=== PATIENT | female | born 1935 | race Caucasian/White ===

== ENCOUNTER → 2016-12-16 | Outpatient (CLI) | payer MEDICARE, OTHER ==
[~2016-12-16] MED LIST: ANTIVERT/2525 M1 PO; ATARAX25 MG PO; ATENOLOL25 MG PO; B-121000 MCG PO; BACTRIM DS 8001 TA1 PO; BENADRYL ALLERG25 M1 PO; COLACE100 MG PO; COUMADIN2.5 M1 PO; D-31000 IU PO; FEOSOL65 MG PO; FOLIC ACID1 MG PO; HALFPRIN162 MG PO; HOMATROPAIRE OS; K-DUR20 MEQ PO; LASIX20 MG PO; LISINOPRIL5 MG PO; MAG-OX 400400 MG PO; MIRALAX POWDER17 G1 PO; NOVOLOG FLEX100 U/ML SC; OXYCODONE5 MG PO; PERCOCET 325 MG1 TA2 PO; PERCOCET 325 MG1 TA5 PO; PERCOCET 325 MG1 TA6 PO; PLAVIX75 MG PO; PRAVACHOL40 MG PO; PRED FORTE 10 M10 ML OS; PROTONIX40 MG PO; Percocet 325 MG1 TAB PO; REGLAN PO; RESTORIL15 MG PO; STEROID EYE DROPS; TOLMETIN SODIU400 MG PO; TYLENOL325 M1 PO; ULTRAM50 MG PO; XOPENEX0.63 MG INH; ZOFRAN4 MG PO; ZOFRAN8 M1 PO
== END | disposition home or self-care (01) ==
LOC: RAD 11:28
DX: M19.071 Primary osteoarthritis, right ankle and foot (principal); M17.11 Unilateral primary osteoarthritis, right knee; M77.51 Other enthesopathy of right foot and ankle

== ENCOUNTER → 2017-01-05 | Outpatient (CLI) | payer MEDICARE, OTHER | END | disposition home or self-care (01) | LOC: ORTHO 08:23 | DX: M25.471 Effusion, right ankle (principal); W19.XXXA Unspecified fall, initial encounter ==

== ENCOUNTER → 2017-02-07 | Outpatient (CLI) | payer MEDICARE, OTHER | END | disposition home or self-care (01) | LOC: RAD 14:03 | DX: M47.896 Other spondylosis, lumbar region (principal); M46.04 Spinal enthesopathy, thoracic region; M85.88 Other specified disorders of bone density and structure, other site; I70.0 Atherosclerosis of aorta ==

== ENCOUNTER → 2017-02-23 | Outpatient (CLI) | payer MEDICARE, OTHER | LOC: MRI 14:43 | DX: M47.896 Other spondylosis, lumbar region (principal); M79.1 Myalgia; W19.XXXA Unspecified fall, initial encounter; Y93.89 Activity, other specified; Y92.89 Other specified places as the place of occurrence of the external cause; Y99.8 Other external cause status ==

== ENCOUNTER 2017-03-07 19:24 | Inpatient (IN) | payer MEDICARE, OTHER ==
[~2017-03-07] VITALS: Ht 157.5 cm; Wt 75.1 kg
--- NOTE | ~2017-03-07 | WRIGHTHP ---
[place], [place] PATIENT HISTORY AND PHYSICAL EXAM NAME: TARA TORRE [facility] #: [id number] UNIT #: [id number] ROOM: 508 DOCTOR: ALDO HERNANDES MD BIRTHDATE: [birth year] DOS: 03/08/2017 HISTORY OF PRESENT ILLNESS: The patient is an 81-year-old female with past medical history of: 1. Mixed hyperlipidemia. 2. History of left hip fracture status post intramedullary nail fixation. 3. Adult failure to thrive. 4. Chronic constipation. 5. History of gastroesophageal reflux disease and esophagitis. The patient presented to the Emergency Department with dizziness and being unable to walk properly. After initial evaluation and CT scan of the head, the patient was recommended for admission and further management because she lives by herself. The patient has a long-term history of adult failure to thrive, but she was not complaining of any chest pains. No fainting spells, but she nearly passed out prior to coming to the hospital. SYSTEMS REVIEW: CARDIOVASCULAR SYSTEM: No chest pain or palpitations. GASTROINTESTINAL: No nausea, vomiting, diarrhea or constipation. LUNGS: No shortness of breath or wheezing. SOCIAL HISTORY: Denies smoking cigarettes, alcohol and drug abuse. Lives by herself. FAMILY HISTORY: Noncontributory. HOME MEDICATIONS: Protonix, pravastatin, MiraLax and metoclopramide. ALLERGIES: The patient has no known allergies to MORPHINE, GENERAL ANESTHESIA AND SOME TAPE. PHYSICAL EXAMINATION: GENERAL: The patient is alert and oriented x 3, generally weak. HEENT AND NECK: Extraocular movements are intact. Sclerae are anicteric. Oral mucosa is moist and clean. No obvious facial weakness. Neck is supple without any lymphadenopathy. No thyromegaly. No JVD. No carotid arterial bruits. LUNGS: Clear to auscultation. No wheezing. No rhonchi. CARDIOVASCULAR SYSTEM: Heart rate is regular in rate and rhythm. S1 and S2 normally audible. No significant murmur or any other abnormal cardiac sounds. ABDOMEN: Soft, nontender. No obvious organomegaly. Bowel sounds are present. No obvious herniation. EXTREMITIES: Without significant cyanosis or edema. Warm to touch. CENTRAL NERVOUS SYSTEM: Alert and oriented x 3. Cranial nerves II-XII are intact. Speech is normal. The patient is able to move all extremities. Normal muscle strength. Deep tendon reflexes are equal on both sides. Plantars were downgoing. LABORATORY DATA: Serum electrolytes were normal. Blood sugar of 114. CT of the head without any acute process. Normal CBC. [place], [place] PATIENT HISTORY AND PHYSICAL EXAM NAME: TARA TORRE UNIT #: [id number] ROOM: 508 DOCTOR: ALDO HERNANDES MD BIRTHDATE: [birth year] IMPRESSION: 1. The patient presenting with dizziness, near syncopal episode and difficulty with ambulation. The patient lives by herself, so she was admitted to [facility] and physical therapy has been consulted. I am also consulting manager social services and tried to place her in a penitentiary facility for rehab. The patient is at high risk for falling at home and being able to survive by herself at her age of [age] years old and feeling dizzy and being unable to ambulate normally. 2. Mixed hyperlipidemia. I will continue treatment with Pravachol. 3. Gastroesophageal reflux disease and esophagitis. The patient already on Protonix and Carafate, which have been continued. 4. Chronic constipation, treated and controlled with MiraLax, which has been continued. ALDO HERNANDES MD CM:HISPHYS:PATIENT HISTORY AND PHYSICAL EXAMINATION [phone] ALDO HERNANDES MD 03/08/171954 interface
--- NOTE | ~2017-03-07 | DS ---
[place], [place] DISCHARGE SUMMARY NAME: TARA TORRE UNIT #: [id number] ROOM: 508 DOCTOR: ALDO HERNANDES MD BIRTHDATE: [birth year] DOS: 03/09/2017 DISCHARGE DIAGNOSES: 1. Benign positional vertigo, improved with treatment. 2. Mixed hyperlipidemia. 3. Left hip fracture status post intramedullary nail fixation in the past. 4. Adult failure to thrive. 5. Chronic constipation. 6. History of gastroesophageal reflux disease and esophagitis. 7. Chronic constipation. 8. Mixed hyperlipidemia. HOSPITAL COURSE: 1. The patient presented to the Emergency Department with dizziness and near syncopal episode with difficulty with ambulation. The patient lives by herself and is generally weak and ambulates with the help of a walker. The patient's daughter lives next to her. The patient was having difficulty with ambulation, so she was admitted and she worked with physical therapy and I treated her with Antivert. The patient's dizziness improved and she is ambulating better. I tried to get her to prison facility for rehabilitation, but the patient has refused and she wants to go home. The patient appears to have achieved maximum benefit from this admission and will be discharged to home with her daughter today. 2. Mixed hyperlipidemia, treated with Pravachol. 3. Gastroesophageal reflux disease and esophagitis, asymptomatic, with Protonix and Carafate. 4. Chronic constipation, controlled with MiraLax. LABORATORY DATA: Normal. Albumin and total protein. Normal serum electrolytes, bilirubin, and liver enzymes. Normal CBC. Urinalysis without any signs of infection. CT of the head without acute abnormality. Chest x-ray showed postoperative changes. DISCHARGE MANAGEMENT: Protonix 40 mg a day, pravastatin 40 mg a day, MiraLax 17 grams b.i.d., metoclopramide 5 mg b.i.d. a.c., ondansetron 8 mg q.8 hours p.r.n. for nausea and vomiting, Meclizine 25 mg t.i.d. p.r.n. for dizziness. Follow up with PCP next week. [place], [place] DISCHARGE SUMMARY NAME: TARA TORRE UNIT #: [id number] ROOM: 508 DOCTOR: ALDO HERNANDES MD BIRTHDATE: [birth year] ALDO HERNANDES MD CM:BILLY 1940 ALDO HERNANDES MD 03/10/1732 interface
[2017-03-07 19:42] VITALS: BP 161/68
[2017-03-07 20:28] LABS: BASO % 0.3 % (0.0-1.0); EOS # 0.1 10*3/uL (0.0-0.4); HEMATOCRIT 44.2 % (37.0-47.0); HEMOGLOBIN 14.1 g/dl (12.0-16.0); LYMPH # 2.9 10*3/uL (1.3-4.4); LYMPH % 30.6 % (27.0-41.0); MEAN CELL VOLUME 91.1 fl (81.0-99.0); MEAN CORPUSCULAR HGB 29.1 pg (27.0-31.0); MEAN CORPUSCULAR HGB CONC 31.9 g/dl (33.0-37.0); MEAN PLATELET VOLUME 11.2 fl (9.6-12.3); MONO # 0.6 10*3/uL (0.1-1.0); MONO % 6.3 % (3.0-9.0); NEUT # 5.8 10*3/uL (2.3-7.9); NEUT % 61.6 % (47.0-73.0); PLATELET COUNT AUTOMATED 225 10*3/uL (130-400); RED BLOOD COUNT 4.85 10*6/uL (4.10-5.10); RED CELL DISTRI WIDTH 13.9 % (0-14.5); WHITE BLOOD COUNT 9.4 10*3/uL (4.8-10.8)
[2017-03-07 20:42] LABS: INTERNATIONAL NORM RATIO 0.9 (2.0-3.5); PROTHROMBIN TIME 9.7 SECONDS (9.0-12.4)
[2017-03-07 20:45] LABS: ALBUMIN 3.9 gm/dl (3.1-4.5); ALKALINE PHOSPHATASE 107 U/L (45-117); BILIRUBIN, TOTAL 0.4 mg/dl (0.2-1.0); BUN 18 mg/dl (7-24); CARBON DIOXIDE 32 mmol/L (21-32); CHLORIDE 102 mmol/L (98-107); EST GLOM FILT AFRICAN AMERICAN > 60 ml/min; GLUCOSE 114 mg/dL (65-99); MAGNESIUM 2.3 mg/dL (1.5-2.1); POTASSIUM 4.2 mmol/L (3.5-5.1); SGOT/AST 24 IU/L (3-35); SGPT/ALT 35 U/L (12-78); SODIUM 138 mmol/L (136-145); TOTAL PROTEIN 7.9 gm/dL (6.4-8.2)
[2017-03-07 20:47] VITALS: BP 124/62
[2017-03-07 20:48] LABS: TROPONIN I < 0.015 ng/ml (<0.045)
[2017-03-07 21:54] LABS: BILIRUBIN NEGATIVE (NEGATIVE); BLOOD NEGATIVE (NEGATIVE); CLARITY CLEAR (CLEAR); COLOR YELLOW (YELLOW); GLUCOSE NEGATIVE (NEGATIVE); KETONE NEGATIVE (NEGATIVE); LEUKO ESTERASE NEGATIVE (NEGATIVE); NITRITE NEGATIVE (NEGATIVE); PROTEIN NEGATIVE (NEGATIVE); SPECIFIC GRAVITY <= 1.005 (1.005-1.030); UROBILINOGEN 0.2 E.U./dl (0.2-1.0)
[2017-03-07 22:01] LABS: BACTERIA TRACE; RBC 0-2 rbc/hpf (0-2); WBC 0-2 wbc/hpf (0-5)
[2017-03-07 22:02] LABS: URINE REFLEX COMMENT NO (NO)
[2017-03-07 22:13] VITALS: BP 122/64
[2017-03-07 23:59] VITALS: BP 124/77
[2017-03-08 00:15] VITALS: BP 139/73
[2017-03-08 04:00] VITALS: BP 139/73
[2017-03-08 08:00] VITALS: BP 104/76
[2017-03-08 12:00] VITALS: BP 119/84
[2017-03-08 16:00] VITALS: BP 106/54
[2017-03-08 20:00] VITALS: BP 120/56
[2017-03-09] VITALS: BP 94/50
[2017-03-09 08:00] VITALS: BP 112/70; BP 120/56
[2017-03-09 12:00] VITALS: BP 115/60
[2017-03-09 16:00] VITALS: BP 106/44
[2017-03-09] MEDS ORDERED: MECLIZINE HCL25 M2 PO (19:33)
== END 2017-03-09 21:04 | disposition home or self-care (01) | DRG 149 ==
LOC: ED 19:24 → EDHOLD 22:32 → 5E 22:32
PROVIDERS: Emergency Medicine Emergency Medical Services
DX: H81.10 Benign paroxysmal vertigo, unspecified ear (principal); R62.7 Adult failure to thrive; E78.2 Mixed hyperlipidemia; K21.0 Gastro-esophageal reflux disease with esophagitis; K59.09 Other constipation; Z87.81 Personal history of (healed) traumatic fracture; Z79.899 Other long term (current) drug therapy; Z88.4 Allergy status to anesthetic agent; Z88.5 Allergy status to narcotic agent; Z91.048 Other nonmedicinal substance allergy status

== ENCOUNTER → 2017-05-19 | Outpatient (CLI) | payer MEDICARE, OTHER ==
[~2017-05-19] MED LIST changes: +MECLIZINE HCL25 M2 PO
== END | disposition home or self-care (01) ==
LOC: US 06:30
DX: I73.9 Peripheral vascular disease, unspecified (principal)

== ENCOUNTER → 2017-06-30 | Outpatient (CLI) | payer MEDICARE, OTHER ==
[2017-06-30 14:51] LABS: BILIRUBIN NEGATIVE (NEGATIVE); BLOOD NEGATIVE (NEGATIVE); CLARITY CLEAR (CLEAR); COLOR YELLOW (YELLOW); GLUCOSE NEGATIVE (NEGATIVE); KETONE NEGATIVE (NEGATIVE); LEUKO ESTERASE TRACE (NEGATIVE); NITRITE NEGATIVE (NEGATIVE); PH 6.5 (5.0-9.0); SPECIFIC GRAVITY <= 1.005 (1.005-1.030); UROBILINOGEN 0.2 E.U./dl (0.2-1.0)
[2017-06-30 15:01] LABS: BACTERIA TRACE
== END | disposition home or self-care (01) ==
LOC: LAB 14:07
PROVIDERS: Internal Medicine Cardiovascular Disease
DX: R35.8 Other polyuria (principal)

== ENCOUNTER → 2018-01-10 | Outpatient (CLI) | payer MEDICARE, OTHER | END | disposition home or self-care (01) | LOC: RAD 11:44 | DX: M19.072 Primary osteoarthritis, left ankle and foot (principal) ==

== ENCOUNTER 2018-06-14 10:49 | Emergency (ER) | payer MEDICARE, OTHER ==
[~2018-06-14] VITALS: Wt 68.5 kg
--- NOTE | ~2018-06-14 | EKG ---
[place], [place] ELECTROCARDIOGRAM REPORT NAME: TARA TORRE UNIT #: [id number] ROOM: DOCTOR: EPIPHANY DRAFT REPORT BIRTHDATE: [birth year] [facility] Test Date: 2018-06-14 Test Time: 12:10:18 Pat Name: TARA TORRE Department: Room: Gender: F Polysomnographic Technologist: Radha Russell : 1935 Requested By: JOHN HEART Order Number: [id number] Reading MD: Deana Aguilar MD Measurements Intervals [place] Rate: 65 P: 53 [place]: 184 QRS: -5 QRSD: 90 T: 15 QT: 383 QTc: 399 Interpretive Statements Sinus rhythm Low voltage, precordial leads Abnormal R-wave progression, early transition Electronically Signed On 06-19-2018 11:07:00 PST by Deana Aguilar MD CM:EKGRPT:ELECTROCARDIOGRAM REPORT [id number] JOHN HEART EPIPHANY DRAFT REPORT JOHN HEART
[2018-06-14 11:21] LABS: BASO % 0.4 % (0.0-1.0); EOS # 0.1 10*3/uL (0.0-0.4); EOS % 0.8 % (1.0-4.0); HEMATOCRIT 41.3 % (37.0-47.0); LYMPH # 1.6 10*3/uL (1.3-4.4); LYMPH % 14.9 % (27.0-41.0); MEAN CELL VOLUME 95.8 fl (81.0-99.0); MEAN CORPUSCULAR HGB 30.2 pg (27.0-31.0); MEAN CORPUSCULAR HGB CONC 31.5 g/dl (33.0-37.0); MEAN PLATELET VOLUME 11.2 fl (9.6-12.3); MONO # 0.5 10*3/uL (0.1-1.0); MONO % 4.7 % (3.0-9.0); NEUT # 8.2 10*3/uL (2.3-7.9); NEUT % 77.6 % (47.0-73.0); PLATELET COUNT AUTOMATED 205 10*3/uL (130-400); RED BLOOD COUNT 4.31 10*6/uL (4.10-5.10); RED CELL DISTRI WIDTH 13.4 % (0-14.5); WHITE BLOOD COUNT 10.6 10*3/uL (4.8-10.8)
[2018-06-14 11:35] LABS: ACT PARTIAL THROMBO TIME 24.2 SECONDS (20.8-31.5); INTERNATIONAL NORM RATIO 0.9 (2.0-3.5)
[2018-06-14 11:39] LABS: ALBUMIN 3.7 gm/dl (3.1-4.5); ALKALINE PHOSPHATASE 85 U/L (45-117); BUN 20 mg/dl (7-24); CHLORIDE 105 mmol/L (98-107); POTASSIUM 3.8 mmol/L (3.5-5.1); SGOT/AST 28 IU/L (3-35); SGPT/ALT 29 U/L (12-78); SODIUM 141 mmol/L (136-145); TOTAL PROTEIN 7.9 gm/dL (6.4-8.2)
[2018-06-14 11:41] LABS: TROPONIN I < 0.015 ng/ml (<0.045)
[2018-06-14 12:38] LABS: BILIRUBIN NEGATIVE (NEGATIVE); BLOOD NEGATIVE (NEGATIVE); CLARITY CLEAR (CLEAR); COLOR YELLOW (YELLOW); GLUCOSE NEGATIVE (NEGATIVE); KETONE NEGATIVE (NEGATIVE); LEUKO ESTERASE NEGATIVE (NEGATIVE); NITRITE NEGATIVE (NEGATIVE); UROBILINOGEN 0.2 E.U./dl (0.2-1.0)
[2018-06-14 12:46] LABS: BACTERIA TRACE
[2018-06-21] MEDS ORDERED: CALCIUM500 M1 PO (15:08)
[2018-06-21] MEDS ORDERED: BIOTIN1000 MC1 PO (15:09)
[2018-06-21] MEDS ORDERED: VITAMIN E400 UNI1 PO (15:09)
[2018-06-21] MEDS ORDERED: BENADRYL ALLERG25 M5 PO (15:10)
[2018-06-21] MEDS ORDERED: LUMIGAN50 DRP OPH (15:11)
[2018-06-21] MEDS ORDERED: TYLENOL325 M1 PO (15:12)
[2018-06-23] MEDS ORDERED: ZOFRAN ODT8 M1 PO (14:37)
== END 2018-06-14 12:57 | disposition home or self-care (01) ==
LOC: ED 10:49
PROVIDERS: Nurse Practitioner Family
DX: T14.90XA Injury, unspecified, initial encounter (principal); M25.512 Pain in left shoulder; M54.5 Low back pain; M25.521 Pain in right elbow; M54.6 Pain in thoracic spine; R79.1 Abnormal coagulation profile; I10 Essential (primary) hypertension; E78.5 Hyperlipidemia, unspecified; E11.9 Type 2 diabetes mellitus without complications; Z91.018 Allergy to other foods; Z88.6 Allergy status to analgesic agent; Z79.899 Other long term (current) drug therapy; W18.39XA Other fall on same level, initial encounter; Y93.89 Activity, other specified; Y92.090 Kitchen in other non-institutional residence as the place of occurrence of the external cause; Y99.8 Other external cause status

== ENCOUNTER 2018-11-18 20:34 | Inpatient (IN) | payer MEDICARE, OTHER ==
[~2018-11-18] VITALS: Ht 157.5 cm; Wt 67.2 kg
--- NOTE | ~2018-11-18 | PR ---
[place], [place] PROGRESS NOTE NAME: TARA TORRE UNIT #: [id number] ROOM: 409 DOCTOR: UMA WANG MD BIRTHDATE: [birth year] DOS: 11/21/2018 SUBJECTIVE: The patient is doing well, does not have any complaints today. Her dizziness is improved. She was evaluated by therapy and they feel she would benefit from PT, OT at home with visiting nurses. OBJECTIVE: VITAL SIGNS: Blood pressure is 158/73, pulse of 62, respirations 16, temperature 97.9. LUNGS: Clear. HEART: Regular. ABDOMEN: Obese, soft, nontender. EXTREMITIES: Without any edema. ASSESSMENT AND PLAN: Vertigo, possibly from mastoiditis. This is resolving. MRI of the brain was ordered, which shows small vessel disease of the brain. The patient is stable. The plan is to discharge her to home today to be followed up as an outpatient. UMA WANG MD CM:PNTRANS [id number] UMA WANG MD 11/22/18 0043 interface
--- NOTE | ~2018-11-18 | DS ---
[place], [place] DISCHARGE SUMMARY [id number] UNIT #: [id number] ROOM: 409 DOCTOR: UMA WANG MD BIRTHDATE: [birth year] DOS: 11/21/2018 DIAGNOSES: 1. Vertigo. 2. Acute mastoiditis. 3. Small vessel disease of the brain. 4. Benign hypertension. The patient refuses to take medications. 5. History of compression fracture with vertebroplasty. 6. Primary osteoarthritis of multiple joints. 7. Left hip replacement. 8. Mixed hyperlipidemia. 9. Gastroesophageal reflux disease. 10. History of uterine carcinoma, status post hysterectomy. 11. Ventral hernia with bowel loops without any evidence of obstruction. 12. 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 HOSPITAL COURSE: This patient is 83 years old with left-sided upper arm paresis. The patient is very well known to us and unable to walk. She became dizzy and lightheaded. She came into the Emergency Room. After being seen in the ER, she complained of abdominal pain, vertigo-like symptoms. She had a CT of the head, which showed some evidence of otitis media. MRI of the brain was ordered, which showed small vessel disease of the brain and left-sided mastoiditis. The patient was placed on IV antibiotics and switched to p.o. medicines today. The patient's blood pressure is slightly elevated, but she has refused blood pressure medications. She did complain of abdominal pain. Urine culture was done. CT of the abdomen and pelvis was ordered and this showed ventral hernias with bowel loops without any evidence of obstruction. Urine culture did not show any bacterial growth. The patient is stable and is not having any new problems, so the plan is to discharge her to home today. PT, OT did evaluate her and they feel she would benefit from home PT, OT, but the patient has declined that also. DISCHARGE MEDICATIONS: Augmentin 875 twice a day for 10 days, iron 65 mg daily, MiraLax 17 grams b.i.d., meclizine 25 b.i.d. p.r.n., calcium 500 daily, biotin 1000 mcg daily, vitamin E 400 units daily, Benadryl 25 daily p.r.n. for pruritus, Lumigan eyedrops at bedtime, Combigan eyedrops 5 mL t.i.d., timolol eyedrops t.i.d. [place], [place] DISCHARGE SUMMARY NAME: TARA TORRE UNIT #: [id number] ROOM: [facility] DOCTOR: UMA WANG MD BIRTHDATE: [birth year] UMA WANG MD CM:DISCHCHAITANYA [phone] [id number] UMA WANG MD 11/21/18 165 interface
--- NOTE | ~2018-11-18 | PR ---
[place], [place] PROGRESS NOTE NAME: TARA TORRE UNIT #: [id number] ROOM: 409 DOCTOR: UMA WANG MD BIRTHDATE: [birth year] DOS: 11/20/2018 SUBJECTIVE: The patient states that she is feeling better. Her dizziness is resolving. OBJECTIVE: VITAL SIGNS: Blood pressure 109/53, pulse is 71, respirations 20, temperature 98.1. LUNGS: Clear. HEART: Regular. ABDOMEN: Obese with a large ventral hernia. EXTREMITIES: Without any edema. Left-sided upper limb has hemiparesis. CT of the abdomen and pelvis shows large ventral hernia with multiple bowel loops, but there is no evidence of obstruction. MRI of the brain shows no pathology other than small vessel disease and mastoiditis. CT of the head was negative except for again mastoiditis. CT sinuses was ordered; I do not have the results yet. ASSESSMENT AND PLAN: 1. Abdominal pain from ventral hernia with bowel loops, but there is no evidence of obstruction. We could start the patient on a low dose of Reglan. 2. Vertigo, possibly from mastoiditis. MRI of the brain shows small vessel disease of the brain. The patient is advised to take an aspirin every day and antibiotics have been ordered. 3. Adult failure to thrive, awaiting PT, OT evaluation. UMA WANG MD CM:PNTRANS [id number] UMA WANG MD 11/20/18 2354 interface
--- NOTE | ~2018-11-18 | WRIGHTHP ---
[place], [place] PATIENT HISTORY AND PHYSICAL EXAM NAME: [id number] UNIT #: [id number] ROOM: 409 DOCTOR: UMA WANG MD BIRTHDATE: [birth year] DOS: 11/18/2018 HISTORY OF PRESENT ILLNESS: This patient is not very well known to me. The patient comes in with complaints of vertigo, was seen in the Emergency Room and was admitted. She was unable to walk. This morning, the patient complains of abdominal pain, states that she has had this pain since she had her compression fracture in the back. She denies having any chest pains, palpitations, does not have any fever or chills, does not have any nausea, any emesis. She is constipated, which is chronic. PAST MEDICAL HISTORY: Significant for: 1. Last hospitalization in June for T12 compression fracture status post vertebroplasty. 2. Primary osteoarthritis of multiple joints with history of left hip replacement. 3. Benign hypertension, but the patient is not taking any medications. 4. Mixed hyperlipidemia. 5. Gastroesophageal reflux disease. 6. Remote history of uterine CA status post hysterectomy. MEDICATIONS: The patient is currently on Timolol eyedrops, Combigan eyedrops, Lumigan eyedrops, iron, meclizine, ondansetron. SOCIAL HISTORY: Nonsmoker. Lives at home alone. PHYSICAL EXAMINATION: GENERAL: She is awake and alert and oriented, complaints of abdominal pain. VITAL SIGNS: Blood pressure is 146/52, pulse of 66, respirations 18, temperature 97.8. LUNGS: Diminished breath sounds, clear. HEART: Regular. ABDOMEN: Obese, soft, nontender with a large ventral hernia present. EXTREMITIES: Without any edema. ASSESSMENT AND PLAN: 1. The patient who presents with vertigo, possibly from underlying mastoiditis. A CT of the sinuses will be ordered. The patient is placed on IV antibiotics. 2. Abdominal pain, possibly from urinary tract infection. CT of the abdomen and pelvis will be ordered. 3. Vertigo. MRI to rule out underlying neurological problems. 4. Benign hypertension. The patient is not taking any medications. Rule out VT protocol was negative. 5. Adult failure to thrive, would benefit from short-term placement. PT/OT has been consulted. [place], [place] PATIENT HISTORY AND PHYSICAL EXAM NAME: TARA TORRE UNIT #: [id number] ROOM: 409 DOCTOR: UMA WANG MD BIRTHDATE: [birth year] UMA WANG MD CM:HISPHYS:PATIENT HISTORY AND PHYSICAL EXAMINATION [id number] UMA WANG MD 11/19/18 1535 interface
--- NOTE | ~2018-11-18 | EKG ---
[place], [place] ELECTROCARDIOGRAM REPORT NAME: TARA TORRE UNIT #: [id number] ROOM: 409 DOCTOR: LAURYN DRAFT REPORT BIRTHDATE: [birth year] [facility] Test Date: 2018-11-19 Test Time: 02:25:18 Pat Name: TARA TORRE Department: Room: 409 Gender: F Engineering Professor: : 1935 Requested By: NEELAM NINA Order Number: [id number] Reading MD: Deana Aguilar MD Measurements Intervals [place] Rate: 61 P: 25 OH: 191 QRS: -6 QRSD: 86 T: 9 QT: 405 QTc: 408 Interpretive Statements Sinus rhythm Abnormal R-wave progression, early transition Baseline wander in lead(s) V3 Compared to ECG 06/14/2018 12:10:18 No significant changes Electronically Signed On 11-22-2018 8:08:03 PDT by Deana Aguilar MD CM:EKGRPT:ELECTROCARDIOGRAM REPORT [id number] NEELAM DE SOUZA DRAFT REPORT NEELAM NINA DO
--- NOTE | ~2018-11-18 | EKG ---
[place], [place] ELECTROCARDIOGRAM REPORT NAME: TARA TORRE UNIT #: [id number] ROOM: 409 DOCTOR: LAURYN DRAFT REPORT BIRTHDATE: [birth year] [facility] Test Date: 2018-11-18 Test Time: 23:45:48 Pat Name: TARA TORRE Department: Room: 409 Gender: F Roll Plugger Machine Operator: : 1935 Requested By: NEELAM NINA Order Number: [id number] Reading MD: Deana Aguilar MD Measurements Intervals [place] Rate: 58 P: 34 NE: 183 QRS: -21 QRSD: 80 T: -1 QT: 407 QTc: 400 Interpretive Statements Sinus rhythm Abnormal R-wave progression, early transition Left ventricular hypertrophy Borderline T abnormalities, inferior leads Compared to ECG 06/14/2018 12:10:18 Left ventricular hypertrophy now present T-wave abnormality now present Electronically Signed On 11-22-2018 8:07:56 PDT by Deana Aguilar MD CM:EKGRPT:ELECTROCARDIOGRAM REPORT [id number] NEELAM DE SOUZA DRAFT REPORT NEELAM NINA DO
--- NOTE | ~2018-11-18 | EKG ---
[place], [place] ELECTROCARDIOGRAM REPORT NAME: TARA TORRE UNIT #: [id number] ROOM: 409 DOCTOR: LAURYN DRAFT REPORT BIRTHDATE: [birth year] [facility] Test Date: 2018-11-18 Test Time: 20:37:06 Pat Name: TARA TORRE Department: Room: 409 Gender: F Video Game Producer: : 1935 Requested By: NEELAM NINA Order Number: [id number] Reading MD: Deana Aguilar MD Measurements Intervals [place] Rate: 64 P: 54 MS: 172 QRS: -2 QRSD: 87 T: 18 QT: 384 QTc: 396 Interpretive Statements Sinus rhythm Abnormal R-wave progression, early transition Compared to ECG 06/14/2018 12:10:18 No significant changes Electronically Signed On 11-22-2018 8:07:48 PDT by Deana Aguilar MD CM:EKGRPT:ELECTROCARDIOGRAM REPORT [id number] [phone] NEELAM DE SOUZA DRAFT REPORT NEELAM NINA DO
[~2018-11-18 20:34] MED LIST changes: +BENADRYL ALLERG25 M5 PO; +BIOTIN1000 MC1 PO; +CALCIUM500 M1 PO; +LUMIGAN50 DRP OPH; +VITAMIN E400 UNI1 PO; +ZOFRAN ODT8 M1 PO
[2018-11-18 20:40] VITALS: BP 152/56
[2018-11-18 20:52] LABS: BASO % 0.5 % (0.0-1.0); EOS # 0.3 10*3/uL (0.0-0.4); EOS % 2.8 % (1.0-4.0); HEMATOCRIT 38.7 % (37.0-47.0); HEMOGLOBIN 12.2 g/dl (12.0-16.0); LYMPH # 3.5 10*3/uL (1.3-4.4); LYMPH % 39.4 % (27.0-41.0); MEAN CELL VOLUME 96.3 fl (81.0-99.0); MEAN CORPUSCULAR HGB 30.3 pg (27.0-31.0); MEAN CORPUSCULAR HGB CONC 31.5 g/dl (33.0-37.0); MEAN PLATELET VOLUME 10.9 fl (9.6-12.3); MONO # 0.7 10*3/uL (0.1-1.0); MONO % 8.4 % (3.0-9.0); NEUT # 4.3 10*3/uL (2.3-7.9); NEUT % 48.6 % (47.0-73.0); PLATELET COUNT AUTOMATED 251 10*3/uL (130-400); RED BLOOD COUNT 4.02 10*6/uL (4.10-5.10); RED CELL DISTRI WIDTH 13.2 % (0-14.5); WHITE BLOOD COUNT 8.8 10*3/uL (4.8-10.8)
[2018-11-18 21:10] LABS: ALBUMIN 3.3 gm/dl (3.1-4.5); ALKALINE PHOSPHATASE 132 U/L (45-117); BUN 13 mg/dl (7-24); CHLORIDE 105 mmol/L (98-107); CREATININE 0.99 mg/dL (0.55-1.02); POTASSIUM 4.3 mmol/L (3.5-5.1); SGOT/AST 23 IU/L (3-35); SGPT/ALT 24 U/L (12-78); SODIUM 140 mmol/L (136-145); TOTAL PROTEIN 7.2 gm/dL (6.4-8.2); TROPONIN I < 0.015 ng/ml (<0.045)
[2018-11-18 23:26] LABS: BILIRUBIN NEGATIVE (NEGATIVE); BLOOD NEGATIVE (NEGATIVE); CLARITY CLEAR (CLEAR); COLOR YELLOW (YELLOW); GLUCOSE NEGATIVE (NEGATIVE); KETONE NEGATIVE (NEGATIVE); LEUKO ESTERASE 2+ (NEGATIVE); NITRITE NEGATIVE (NEGATIVE); SPECIFIC GRAVITY <= 1.005 (1.005-1.030); UROBILINOGEN 0.2 E.U./dl (0.2-1.0)
[2018-11-18 23:36] LABS: BACTERIA TRACE; WBC 21-30 wbc/hpf (0-5)
[2018-11-19] VITALS (7 sets, daily range): BP systolic 102–146; BP diastolic 52–97
--- NOTE | 2018-11-19 00:15 | NUR ---
Time: 14 A 83 year old FEMALE admitted to under services of DR. KATHLEEN PIMENTEL,UMA. Pt. arrived via ambulatory from ER. Chief complaint: DIZZINESS. MARGOT DURAN
--- NOTE | 2018-11-19 05:17 | NUR ---
DR. WANG NOTIFIED OF PT'S ADMISSION. N.O. RCVD FOR REGULAR DIET, SOLUMEDROL 4OMG IVP DAILY, ROCEPHIN 1GM IV DAILY, MRI OF BRAIN THIS AM, ANTIVERT 12.5MG PO BID PRN FOR DIZZINESS.
--- NOTE | 2018-11-19 07:30 | NUR ---
RESUMED CARE OF PT AT THIS TIME. PT AWAKE, ALERT ORIENTED AND PLEASANT WITH NO COMPLAINTS VOICED. RESPIRATIONS EASY AND UNALBORED ON ROOM AIR. ASSESSMENT COMPLETE. WILL CONTINUE TO MONITOR. CALL LIGHT IN REACH.
--- NOTE | 2018-11-19 08:30 | NUR ---
Prosthetic Dentist in to see patient. She is currently not in her room. Will follow up at a later time.
--- NOTE | 2018-11-19 08:30 | NUR ---
PT TAKEN OFF OF FLOOR FOR MRI OF BRAIN.
--- NOTE | 2018-11-19 08:30 | NUR ---
SPOKE WITH PT REGARDING CODE STATUS AND PT STATES THAT SHE WISHES TO STAY A DNR-CC. SHE DOES NOT WISH TO CHANGE TO A FULL CODE. SHE STATES THAT SHE WANTS NOTHING DONE IN THE EVEN THAT HER HEART WERE TO STOP BEATING OR SHE WERE TO STOP BREATHING.
--- NOTE | 2018-11-19 10:00 | NUR ---
SPOKE WITH PT DAUGHTER ON PHONE AND GAVE UPDATES ON PT.
[2018-11-19] MEDS ORDERED: COMBIGAN 0.2%-010 ML OP (10:49)
[2018-11-19] MEDS ORDERED: BETIMOL5 ML OP (10:53)
--- NOTE | 2018-11-19 11:05 | NUR ---
UPDATED MED LIST PER THE PHARMACY ([facility]) PROVIDED BY PT. CONTINUED EYE DROPS PER THE REQUEST OF PT.
--- NOTE | 2018-11-19 13:00 | NUR ---
Contour Stitcher in to talk to patient. Patient states lives at home alone with her daughter living next door. There are 0 steps in the home. Physician: Dr. Ilana Duval but she would like to find a new doctor. Discussed the resident clinic. She would like to think about it. Pharmacy: [facility] Home health services: states she just finished with [facility] Patient's level of ADLs: MINIMAL ASSIST Patient has working utilities: yes DME: 6 canes, one handed walker, wheelchair, electric wheelchair, electric scooter Follow-up physician's appointment after d/c: she prefers to make her own follow up appt after discharge Does patient want to access PORTAL?: no Discharge plan discussed with patient. She lives at home alone with her daughter living next door and working on the other side of her house. She is independent in her ADLs and ambulates with a cane. Discussed home health care services and she denies any home needs at this time stating she just finished with [facility] recently. When medically stable she will be discharged to home. CR EVANS
[2018-11-20] VITALS: BP 109/53
--- NOTE | 2018-11-20 02:22 | NUR ---
RED AREA WITH BLACK AREA, POSSIBLE SPLINTER NOTED TO TIP OF LEFT GREAT TOE, WOULD YOU LIKE A PODIATRY CONSULT? MALINI IN WOUND CARE NOTIFIED.
--- NOTE | 2018-11-20 05:22 | NUR ---
TARA TORRE [id number] Please refer to the physician's history and physical for past medical history, comorbid conditions, and allergies. Diagnosis: SEVERE VERTIGO Bendeicto Score: 15,AT RISK WOUND DESCRIPTIONS: Wound Number: 1 Location of the wound: tip of left great toe Thickness: Partial Size: 1.0cm x 1.0cm x <0.1cm Tunneling: none Undermining: none Sinus Tract: none Presence of Exudate: none Amount: None Color: Red (pinpoint black area in center) Odor: None Periwound Skin Appearance: Normal Wound edges: closed Pain (associated with wound): none at time of assessment How does patient state this happened? pt unsure how this happened Surface the patient is resting on: Position Pro SKIN PREVENTION RECOMMENDATION: 1. Pressure redistribution support surface as appropriate 2. Elevate heels 3. Remove boots/TEDS every shift and reapply 4. Head of bed 30 degrees as tolerated 5. Assess nutrition and hydration 6. Manage moisture 7. Avoid the use of containment devices while in bed 8. Use absorptive products on surfaces limit layers of linens on bed 9. Turn and reposition every 1-2 hours in bed and every 1 hour in chair as tolerated 10. Weight shifts every 15 minutes while up in chair 11. Offloading with pillows or device to keep heels elevated off bed 12. Monitor skin at least every shift 13. Inspect under medical devices twice a day WOUND TREATMENT RECOMMENDATIONS: Consult podiatry for possible foreign body to tip of left great toe.
[2018-11-20 06:20] LABS: BASO % 0.2 % (0.0-1.0); EOS % 0.1 % (1.0-4.0); HEMATOCRIT 33.6 % (37.0-47.0); HEMOGLOBIN 10.8 g/dl (12.0-16.0); LYMPH # 2.4 10*3/uL (1.3-4.4); LYMPH % 22.8 % (27.0-41.0); MEAN CELL VOLUME 94.1 fl (81.0-99.0); MEAN CORPUSCULAR HGB 30.3 pg (27.0-31.0); MEAN CORPUSCULAR HGB CONC 32.1 g/dl (33.0-37.0); MEAN PLATELET VOLUME 10.9 fl (9.6-12.3); MONO # 0.9 10*3/uL (0.1-1.0); MONO % 8.8 % (3.0-9.0); NEUT # 7.2 10*3/uL (2.3-7.9); NEUT % 67.6 % (47.0-73.0); PLATELET COUNT AUTOMATED 211 10*3/uL (130-400); RED BLOOD COUNT 3.57 10*6/uL (4.10-5.10); RED CELL DISTRI WIDTH 13.1 % (0-14.5); WHITE BLOOD COUNT 10.6 10*3/uL (4.8-10.8)
[2018-11-20 06:44] LABS: BUN 22 mg/dl (7-24); CHLORIDE 109 mmol/L (98-107); CREATININE 0.76 mg/dL (0.55-1.02); POTASSIUM 3.7 mmol/L (3.5-5.1); SODIUM 142 mmol/L (136-145)
[2018-11-20 08:00] VITALS: BP 110/41
--- NOTE | 2018-11-20 09:00 | NUR ---
Photographic Aide in to see patient. Discussed short term SNF and she refuses. Discussed home health care services and she refuses. When medically stable she will be discharged to home.
--- NOTE | 2018-11-20 11:27 | NUR ---
Patient is on a regular diet and eating well; 100% PO intake of meals. Albumin is currently 3.3. No need for a protein supplement at this time. Will monitor for further needs. Continue to encourage PO intake at meal times. Alexandra [facility] Dietetic Student
[2018-11-20 12:00] VITALS: BP 126/59
--- NOTE | 2018-11-20 13:11 | NUR ---
DR WANG MADE AWARE OF PATIENT HAS DARK SPOT ON TOE/CLOSED AND NOT BOTHERING PAITENIron ALSO INFORMED THAT THE PATIENT DOESN'T WANT PODIATRY CONSULT OR TREATMENT SHE SAID IS DOESN'T BOTHER HER.
--- NOTE | 2018-11-20 14:45 | NUR ---
PHYSICAL THERAPY Patient evaluated on 4, full evaluation to follow. Continue with PT as per plan of care with fall, LEFT UE HEMIPARESIS and acute debility precautions. Home with home health Rn and PT recommended. PAtient is moderate complexity via chart review, tests and evaluation: 16803. Thank you for this referral. Lucina Aguillon,PT
[2018-11-20 16:00] VITALS: BP 111/46
[2018-11-20 20:00] VITALS: BP 129/70
[2018-11-21] VITALS: BP 158/73
--- NOTE | 2018-11-21 03:14 | NUR ---
PATIENT SLEEPING. NO S/S OF DISTRESS NOTED. RESPIRATIONS EASY/REG. CALL LIGHT IN REACH
--- NOTE | 2018-11-21 04:39 | NUR ---
24 HR chart check completed.
[2018-11-21 08:00] VITALS: BP 125/50
--- NOTE | 2018-11-21 08:10 | NUR ---
PT RESTING IN BED. RESP-EASY AND REGULAR. NO C/O AT THIS TIME. CALL LIGHT IN REACH. SEE SHIFT ASSESSMENT.
[2018-11-21] MEDS ORDERED: AUGMENTIN 875875 MG PO (08:23)
--- NOTE | 2018-11-21 10:00 | NUR ---
TOLERATED ROUTINE MEDS WITH NO PROBLEM. NO C/O AT THIS TIME. CALL LIGHT IN REACH.
--- NOTE | 2018-11-21 13:50 | NUR ---
Discharge instructions reviewed with patient/family. Patient receptive and verbalizes understanding. Follow-up care arranged. Written instructions given to patient/family. HEPLOCK REMOVED 2X2 APPLIED. ESCORTED VIA WHEELCHAIR FOR DISCHARGE. JEN MONZON R
== END 2018-11-21 13:50 | disposition home or self-care (01) | DRG 153 ==
LOC: ED 20:34 → EDHOLD 23:44 → 4E 23:44
PROVIDERS: Emergency Medicine; ADMIT Internal Medicine
DX: H70.002 Acute mastoiditis without complications, left ear (principal); G81.94 Hemiplegia, unspecified affecting left nondominant side; K43.9 Ventral hernia without obstruction or gangrene; H66.92 Otitis media, unspecified, left ear; I10 Essential (primary) hypertension; M15.9 Polyosteoarthritis, unspecified; E78.2 Mixed hyperlipidemia; E11.9 Type 2 diabetes mellitus without complications; R62.7 Adult failure to thrive; R42 Dizziness and giddiness; Z96.652 Presence of left artificial knee joint; Z66 Do not resuscitate; Z51.5 Encounter for palliative care; H54.62 Unqualified visual loss, left eye, normal vision right eye; I67.9 Cerebrovascular disease, unspecified; K59.09 Other constipation; Z96.642 Presence of left artificial hip joint; K21.9 Gastro-esophageal reflux disease without esophagitis; Z85.42 Personal history of malignant neoplasm of other parts of uterus; Z90.710 Acquired absence of both cervix and uterus; Z88.4 Allergy status to anesthetic agent; Z88.5 Allergy status to narcotic agent; Z91.018 Allergy to other foods; Z91.048 Other nonmedicinal substance allergy status; Z86.711 Personal history of pulmonary embolism; Z87.01 Personal history of pneumonia (recurrent); Z87.440 Personal history of urinary (tract) infections; Z91.81 History of falling; Z90.49 Acquired absence of other specified parts of digestive tract; Z82.49 Family history of ischemic heart disease and other diseases of the circulatory system; Z83.3 Family history of diabetes mellitus; Z82.3 Family history of stroke; Z68.27 Body mass index [BMI] 27.0-27.9, adult

== ENCOUNTER → 2018-12-21 | Outpatient (CLI) | payer MEDICARE, OTHER ==
[~2018-12-21] MED LIST changes: +AUGMENTIN 875875 MG PO; +BETIMOL5 ML OP; +COMBIGAN 0.2%-010 ML OP
[2018-12-21 11:42] LABS: BASO % 0.3 % (0.0-1.0); EOS # 0.1 10*3/uL (0.0-0.4); EOS % 2.1 % (1.0-4.0); HEMATOCRIT 39.7 % (37.0-47.0); HEMOGLOBIN 12.3 g/dl (12.0-16.0); LYMPH % 32.5 % (27.0-41.0); MEAN CELL VOLUME 97.5 fl (81.0-99.0); MEAN CORPUSCULAR HGB 30.2 pg (27.0-31.0); MEAN PLATELET VOLUME 11.2 fl (9.6-12.3); MONO # 0.4 10*3/uL (0.1-1.0); MONO % 7.2 % (3.0-9.0); NEUT # 3.5 10*3/uL (2.3-7.9); NEUT % 57.7 % (47.0-73.0); PLATELET COUNT AUTOMATED 213 10*3/uL (130-400); RED BLOOD COUNT 4.07 10*6/uL (4.10-5.10); RED CELL DISTRI WIDTH 13.3 % (0-14.5); WHITE BLOOD COUNT 6.1 10*3/uL (4.8-10.8)
[2018-12-21 11:57] LABS: BILIRUBIN NEGATIVE (NEGATIVE); BLOOD NEGATIVE (NEGATIVE); CLARITY SL CLOUDY (CLEAR); COLOR YELLOW (YELLOW); GLUCOSE NEGATIVE (NEGATIVE); KETONE NEGATIVE (NEGATIVE); LEUKO ESTERASE 2+ (NEGATIVE); NITRITE NEGATIVE (NEGATIVE); SPECIFIC GRAVITY <= 1.005 (1.005-1.030); UROBILINOGEN 0.2 E.U./dl (0.2-1.0)
[2018-12-21 12:04] LABS: BACTERIA 2+; WBC 31-40 wbc/hpf (0-5)
[2018-12-21 12:12] LABS: ALBUMIN 3.5 gm/dl (3.1-4.5); ALKALINE PHOSPHATASE 115 U/L (45-117); BUN 18 mg/dl (7-24); CHLORIDE 106 mmol/L (98-107); CHOLESTEROL 221 mg/dL (<200); CREATININE 0.95 mg/dL (0.55-1.02); HDL CHOLESTEROL 32 mg/dl (40-60); IRON 80 ug/dL (50-170); LDL CHOLESTEROL 137 mg/dL (9-159); POTASSIUM 3.9 mmol/L (3.5-5.1); SGOT/AST 16 IU/L (3-35); SGPT/ALT 17 U/L (12-78); SODIUM 140 mmol/L (136-145); TOTAL IRON BINDING CAPACITY 252 ug/dl (250-450); TOTAL PROTEIN 7.2 gm/dL (6.4-8.2); TRIGLYCERIDES 262 mg/dl (<150); VLDL CHOLESTEROL 52 mg/dL (6-40)
[2018-12-21 12:19] LABS: VITAMIN D, 25-HYDROXY 24.4 ng/mL (30-100)
== END | disposition home or self-care (01) ==
LOC: LAB 11:11
PROVIDERS: Internal Medicine Cardiovascular Disease
DX: E78.2 Mixed hyperlipidemia (principal); E53.9 Vitamin B deficiency, unspecified; E55.9 Vitamin D deficiency, unspecified; N39.0 Urinary tract infection, site not specified; E61.1 Iron deficiency; R53.83 Other fatigue; R53.81 Other malaise; R73.09 Other abnormal glucose

== ENCOUNTER 2019-02-12 14:26 | Emergency (ER) | payer MEDICARE, OTHER ==
[~2019-02-12] VITALS: Ht 152.4 cm; Wt 67.1 kg
--- NOTE | ~2019-02-12 | EKG ---
[place], [place] ELECTROCARDIOGRAM REPORT NAME: TARA OTRRE UNIT #: [id number] ROOM: DOCTOR: EPIPHANY DRAFT REPORT BIRTHDATE: [birth year] [facility] Test Date: 2019-02-12 Test Time: 15:38:39 Pat Name: TARA TORRE Department: Room: Gender: F Bow Maker Production: Disha Martinez : 1935 Requested By: CICI LECHUGA PA-C Order Number: [id number] Reading MD: Betzy Gonzalez Measurements Intervals [place] Rate: 61 P: 58 HI: 65 QRS: -5 QRSD: 86 T: 13 QT: 395 QTc: 398 Interpretive Statements Sinus rhythm Short HI interval Compared to ECG 11/19/2018 02:25:18 Short HI interval now present Electronically Signed On 02-13-2019 9:40:17 PDT by Betzy Gonzalez CM:EKGRPT:ELECTROCARDIOGRAM REPORT [id number] CICI LECHUGA PA-C EPIPHANY DRAFT REPORT CICI LECHUGA PA-C
[2019-02-12 15:49] LABS: BASO % 0.3 % (0.0-1.0); EOS # 0.1 10*3/uL (0.0-0.4); EOS % 1.7 % (1.0-4.0); HEMATOCRIT 38.1 % (37.0-47.0); LYMPH # 2.3 10*3/uL (1.3-4.4); LYMPH % 31.8 % (27.0-41.0); MEAN CELL VOLUME 96.2 fl (81.0-99.0); MEAN CORPUSCULAR HGB 30.3 pg (27.0-31.0); MEAN CORPUSCULAR HGB CONC 31.5 g/dl (33.0-37.0); MEAN PLATELET VOLUME 11.1 fl (9.6-12.3); MONO # 0.5 10*3/uL (0.1-1.0); MONO % 7.5 % (3.0-9.0); NEUT # 4.2 10*3/uL (2.3-7.9); NEUT % 58.6 % (47.0-73.0); PLATELET COUNT AUTOMATED 186 10*3/uL (130-400); RED BLOOD COUNT 3.96 10*6/uL (4.10-5.10); RED CELL DISTRI WIDTH 12.6 % (0-14.5); WHITE BLOOD COUNT 7.1 10*3/uL (4.8-10.8)
[2019-02-12 16:02] LABS: INTERNATIONAL NORM RATIO 0.9 (2.0-3.5)
[2019-02-12 16:25] LABS: ALBUMIN 3.6 gm/dl (3.1-4.5); ALKALINE PHOSPHATASE 108 U/L (45-117); BUN 15 mg/dl (7-24); CHLORIDE 106 mmol/L (98-107); POTASSIUM 3.9 mmol/L (3.5-5.1); SGOT/AST 21 IU/L (3-35); SGPT/ALT 23 U/L (12-78); SODIUM 141 mmol/L (136-145); TOTAL PROTEIN 7.3 gm/dL (6.4-8.2)
[2019-02-12 16:28] LABS: TROPONIN I < 0.015 ng/ml (<0.045)
[2019-02-12 17:27] LABS: BILIRUBIN NEGATIVE (NEGATIVE); BLOOD NEGATIVE (NEGATIVE); CLARITY SL CLOUDY (CLEAR); COLOR YELLOW (YELLOW); GLUCOSE NEGATIVE (NEGATIVE); KETONE NEGATIVE (NEGATIVE); LEUKO ESTERASE TRACE (NEGATIVE); NITRITE NEGATIVE (NEGATIVE); PH 8.5 (5.0-9.0); SPECIFIC GRAVITY 1.015 (1.005-1.030); UROBILINOGEN 0.2 E.U./dl (0.2-1.0)
[2019-02-12 17:37] LABS: BACTERIA TRACE; EPITHELIAL CELLS 0-2
[2019-02-12] MEDS ORDERED: MECLIZINE HCL25 M2 PO (17:57)
== END 2019-02-12 18:29 | disposition home or self-care (01) ==
LOC: ED 14:26
PROVIDERS: Physician Assistant
DX: S50.01XA Contusion of right elbow, initial encounter (principal); R53.1 Weakness; R42 Dizziness and giddiness; M54.5 Low back pain; Z79.899 Other long term (current) drug therapy; Z88.6 Allergy status to analgesic agent; Z91.018 Allergy to other foods; Z88.4 Allergy status to anesthetic agent; W07.XXXA Fall from chair, initial encounter; Y93.89 Activity, other specified; Y92.89 Other specified places as the place of occurrence of the external cause; Y99.8 Other external cause status

== ENCOUNTER → 2019-04-08 | Outpatient (CLI) | payer MEDICARE, OTHER | END | disposition home or self-care (01) | LOC: ORTHO 01:17 | DX: I77.1 Stricture of artery (principal); M79.662 Pain in left lower leg ==

== ENCOUNTER → 2019-05-29 | Outpatient (CLI) | payer MEDICARE, OTHER ==
[2019-05-29 11:05] LABS: BUN 20 mg/dl (7-24); CHLORIDE 108 mmol/L (98-107); CREATININE 0.99 mg/dL (0.55-1.02); POTASSIUM 4.1 mmol/L (3.5-5.1); SODIUM 141 mmol/L (136-145)
[2019-05-29 11:50] LABS: BILIRUBIN NEGATIVE (NEGATIVE); BLOOD NEGATIVE (NEGATIVE); CLARITY CLEAR (CLEAR); COLOR YELLOW (YELLOW); GLUCOSE NEGATIVE (NEGATIVE); KETONE NEGATIVE (NEGATIVE); LEUKO ESTERASE 1+ (NEGATIVE); NITRITE NEGATIVE (NEGATIVE); PH 6.5 (5.0-9.0); UROBILINOGEN 0.2 E.U./dl (0.2-1.0)
[2019-05-29 11:56] LABS: BACTERIA TRACE; MUCOUS 1+; WBC 16-20 wbc/hpf (0-5)
== END | disposition home or self-care (01) ==
LOC: LAB 10:12
PROVIDERS: Internal Medicine Cardiovascular Disease
DX: R35.1 Nocturia (principal); R53.81 Other malaise; R42 Dizziness and giddiness; Z79.899 Other long term (current) drug therapy

== ENCOUNTER 2019-08-29 03:42 | Emergency (ER) | payer MEDICARE, OTHER ==
[~2019-08-29] VITALS: Ht 157.4 cm; Wt 65.8 kg
== END 2019-08-29 05:20 | disposition home or self-care (01) ==
LOC: ED 03:42
DX: S03.00XA Dislocation of jaw, unspecified side, initial encounter (principal); E11.9 Type 2 diabetes mellitus without complications; I10 Essential (primary) hypertension; E78.5 Hyperlipidemia, unspecified; Z88.5 Allergy status to narcotic agent; Z91.048 Other nonmedicinal substance allergy status; Z88.4 Allergy status to anesthetic agent; Z91.018 Allergy to other foods; Z79.899 Other long term (current) drug therapy; Z79.2 Long term (current) use of antibiotics; Z98.890 Other specified postprocedural states; Z90.49 Acquired absence of other specified parts of digestive tract; X58.XXXA Exposure to other specified factors, initial encounter; Y93.89 Activity, other specified; Y92.89 Other specified places as the place of occurrence of the external cause; Y99.8 Other external cause status

== ENCOUNTER → 2020-04-21 | Outpatient (CLI) | payer MEDICARE, OTHER | END | disposition home or self-care (01) | LOC: CT 11:00 | PROVIDERS: ATTEND Internal Medicine | DX: K43.9 Ventral hernia without obstruction or gangrene (principal); Z98.890 Other specified postprocedural states ==

== ENCOUNTER → 2020-09-02 | Outpatient (CLI) | payer MEDICARE, OTHER ==
[~2020-09-02] MED LIST changes: +DICLOFENAC SOD50 MG PO; +TYLENOL EXTRA500 M2 PO
== END | disposition home or self-care (01) ==
LOC: ORTHO 02:45
PROVIDERS: ATTEND Orthopaedic Surgery
DX: M17.11 Unilateral primary osteoarthritis, right knee (principal); M81.0 Age-related osteoporosis without current pathological fracture; M25.761 Osteophyte, right knee

== ENCOUNTER 2020-09-04 16:31 | Observation (INO) | payer MEDICARE, OTHER ==
[~2020-09-04] VITALS: Ht 157.4 cm; Wt 62.9 kg
[~2020-09-04 16:31] MED LIST changes: -DICLOFENAC SOD50 MG PO; -TYLENOL EXTRA500 M2 PO
[2020-09-04 16:46] VITALS: BP 146/69
[2020-09-04 17:15] LABS: BASO % 0.1 % (0.0-1.0); EOS # 0.1 10*3/uL (0.0-0.4); EOS % 0.7 % (1.0-4.0); HEMATOCRIT 36.1 % (37.0-47.0); LYMPH # 1.5 10*3/uL (1.3-4.4); LYMPH % 22.8 % (27.0-41.0); MEAN CELL VOLUME 89.1 fl (81.0-99.0); MEAN CORPUSCULAR HGB 27.9 pg (27.0-31.0); MEAN CORPUSCULAR HGB CONC 31.3 g/dl (33.0-37.0); MEAN PLATELET VOLUME 10.5 fl (9.6-12.3); MONO # 0.5 10*3/uL (0.1-1.0); MONO % 7.1 % (3.0-9.0); NEUT # 4.6 10*3/uL (2.3-7.9); NEUT % 69.2 % (47.0-73.0); PLATELET COUNT AUTOMATED 219 10*3/uL (130-400); RED BLOOD COUNT 4.05 10*6/uL (4.10-5.10); RED CELL DISTRI WIDTH 14.3 % (0-14.5); WHITE BLOOD COUNT 6.7 10*3/uL (4.8-10.8)
[2020-09-04 17:44] LABS: ALBUMIN 3.5 gm/dl (3.1-4.5); ALKALINE PHOSPHATASE 159 U/L (45-117); BUN 11 mg/dl (7-24); CHLORIDE 109 mmol/L (98-107); LIPASE 121 U/L (73-393); POTASSIUM 3.9 mmol/L (3.5-5.1); SGOT/AST 12 IU/L (3-35); SGPT/ALT 17 U/L (12-78); SODIUM 141 mmol/L (136-145); TOTAL PROTEIN 7.1 gm/dL (6.4-8.2)
[2020-09-04 17:52] LABS: TROPONIN I < 0.015 ng/ml (<0.045)
[2020-09-04 17:58] LABS: BILIRUBIN Negative (Negative); BLOOD Negative (Negative); CLARITY Clear (Clear); COLOR Yellow (Yellow); GLUCOSE Negative (Negative); KETONE Negative (Negative); LEUKO ESTERASE Trace (Negative); NITRITE Negative (Negative); PH 6.5 (4.5-8.0); UROBILINOGEN 0.2 E.U./dl (0.0-1.0)
[2020-09-04 18:10] LABS: BACTERIA TRACE; RBC 0-2 rbc/hpf (0-2)
[2020-09-04 20:00] VITALS: BP 135/68
[2020-09-04] MEDS ORDERED: PROTONIX40 MG PO (20:38)
[2020-09-04 22:20] VITALS: BP 118/54
[2020-09-04 22:30] VITALS: BP 108/94
[2020-09-05] VITALS: BP 129/40
[2020-09-05 08:00] VITALS: BP 97/42
[2020-09-05 12:00] VITALS: BP 96/42
[2020-09-05 16:00] VITALS: BP 107/54
[2020-09-05 20:00] VITALS: BP 152/58
[2020-09-06] VITALS: BP 104/47
[2020-09-06 06:14] LABS: BASO % 0.2 % (0.0-1.0); EOS # 0.1 10*3/uL (0.0-0.4); EOS % 2.3 % (1.0-4.0); HEMATOCRIT 32.7 % (37.0-47.0); LYMPH % 40.5 % (27.0-41.0); MEAN CELL VOLUME 90.1 fl (81.0-99.0); MEAN CORPUSCULAR HGB 28.1 pg (27.0-31.0); MEAN CORPUSCULAR HGB CONC 31.2 g/dl (33.0-37.0); MEAN PLATELET VOLUME 11.3 fl (9.6-12.3); MONO # 0.5 10*3/uL (0.1-1.0); MONO % 10.5 % (3.0-9.0); NEUT # 2.2 10*3/uL (2.3-7.9); NEUT % 46.3 % (47.0-73.0); PLATELET COUNT AUTOMATED 204 10*3/uL (130-400); RED BLOOD COUNT 3.63 10*6/uL (4.10-5.10); RED CELL DISTRI WIDTH 14.6 % (0-14.5); WHITE BLOOD COUNT 4.8 10*3/uL (4.8-10.8)
[2020-09-06 06:34] LABS: BUN 17 mg/dl (7-24); CHLORIDE 110 mmol/L (98-107); CREATININE 0.99 mg/dL (0.55-1.02); POTASSIUM 4.1 mmol/L (3.5-5.1); SODIUM 145 mmol/L (136-145)
[2020-09-06 08:00] VITALS: BP 144/87
[2020-09-06 12:00] VITALS: BP 166/59
[2020-09-06 16:00] VITALS: BP 133/86
[2020-09-06] MEDS ORDERED: TYLENOL EXTRA500 M2 PO (16:37)
[2020-09-06] MEDS ORDERED: DICLOFENAC SOD50 MG PO (16:41)
== END 2020-09-06 18:20 | disposition home or self-care (01) ==
LOC: ED 16:31 → 5E 19:51 → EDHOLD 19:51 → 5E 21:54
PROVIDERS: Physician Assistant; ADMIT Internal Medicine; ATTEND Internal Medicine
DX: S22.42XA Multiple fractures of ribs, left side, initial encounter for closed fracture (principal); R53.1 Weakness; I10 Essential (primary) hypertension; E78.2 Mixed hyperlipidemia; K21.00 Gastro-esophageal reflux disease with esophagitis, without bleeding; R62.7 Adult failure to thrive; G81.90 Hemiplegia, unspecified affecting unspecified side; K43.9 Ventral hernia without obstruction or gangrene; M19.90 Unspecified osteoarthritis, unspecified site; R19.7 Diarrhea, unspecified; R11.2 Nausea with vomiting, unspecified; W18.30XA Fall on same level, unspecified, initial encounter; Y93.89 Activity, other specified; Y92.89 Other specified places as the place of occurrence of the external cause; Y99.8 Other external cause status; H40.9 Unspecified glaucoma; Z90.710 Acquired absence of both cervix and uterus; Z98.890 Other specified postprocedural states; Z90.49 Acquired absence of other specified parts of digestive tract

== ENCOUNTER 2020-11-16 07:55 | Emergency (ER) | payer MEDICARE, OTHER ==
[~2020-11-16] VITALS: Ht 165.1 cm; Wt 78.0 kg
[~2020-11-16 07:55] MED LIST changes: +DICLOFENAC SOD50 MG PO; +TYLENOL EXTRA500 M2 PO
[2020-11-16 09:16] LABS: BASO % 0.2 % (0.0-1.0); EOS % 0.7 % (1.0-4.0); HEMATOCRIT 41.4 % (37.0-47.0); LYMPH # 1.8 10*3/uL (1.3-4.4); LYMPH % 32.1 % (27.0-41.0); MEAN CELL VOLUME 90.4 fl (81.0-99.0); MEAN CORPUSCULAR HGB 27.7 pg (27.0-31.0); MEAN CORPUSCULAR HGB CONC 30.7 g/dl (33.0-37.0); MEAN PLATELET VOLUME 11.1 fl (9.6-12.3); MONO # 0.4 10*3/uL (0.1-1.0); MONO % 7.5 % (3.0-9.0); NEUT # 3.3 10*3/uL (2.3-7.9); NEUT % 59.3 % (47.0-73.0); PLATELET COUNT AUTOMATED 223 10*3/uL (130-400); RED BLOOD COUNT 4.58 10*6/uL (4.10-5.10); RED CELL DISTRI WIDTH 14.6 % (0-14.5); WHITE BLOOD COUNT 5.5 10*3/uL (4.8-10.8)
[2020-11-16 09:23] LABS: BILIRUBIN Negative (Negative); BLOOD Negative (Negative); CLARITY Clear (Clear); COLOR Yellow (Yellow); GLUCOSE Negative (Negative); KETONE Negative (Negative); LEUKO ESTERASE Negative (Negative); NITRITE Negative (Negative); PH 7.5 (4.5-8.0); SPECIFIC GRAVITY <= 1.005 (1.001-1.030); UROBILINOGEN 0.2 E.U./dl (0.0-1.0)
[2020-11-16 09:27] LABS: ACT PARTIAL THROMBO TIME 25.9 SECONDS (20.0-32.1)
[2020-11-16 09:31] LABS: ALBUMIN 3.8 gm/dl (3.1-4.5); ALKALINE PHOSPHATASE 162 U/L (45-117); BUN 11 mg/dl (7-24); CHLORIDE 107 mmol/L (98-107); CREATININE 0.83 mg/dL (0.55-1.02); LIPASE 138 U/L (73-393); POTASSIUM 3.4 mmol/L (3.5-5.1); SGOT/AST 13 IU/L (3-35); SGPT/ALT 14 U/L (12-78); SODIUM 142 mmol/L (136-145); TOTAL PROTEIN 7.5 gm/dL (6.4-8.2); TROPONIN I < 0.015 ng/ml (<0.045)
[2020-11-16 09:44] LABS: BACTERIA TRACE; WBC 0-2 wbc/hpf (0-5)
== END 2020-11-16 12:45 | disposition home or self-care (01) ==
LOC: ED 07:55
PROVIDERS: Emergency Medicine
DX: M25.551 Pain in right hip (principal); Z88.5 Allergy status to narcotic agent; Z91.018 Allergy to other foods; Z79.899 Other long term (current) drug therapy; Z90.711 Acquired absence of uterus with remaining cervical stump; Z98.890 Other specified postprocedural states; Z96.652 Presence of left artificial knee joint; Z90.49 Acquired absence of other specified parts of digestive tract

== ENCOUNTER 2020-11-25 14:44 | Inpatient (IN) | payer MEDICARE, OTHER ==
[~2020-11-25] VITALS: Ht 157.5 cm; Wt 66.4 kg
[2020-11-25 14:56] VITALS: BP 137/77
[2020-11-25 15:26] LABS: BASO % 0.3 % (0.0-1.0); EOS # 0.1 10*3/uL (0.0-0.4); EOS % 1.2 % (1.0-4.0); HEMATOCRIT 39.7 % (37.0-47.0); LYMPH # 2.3 10*3/uL (1.3-4.4); MEAN CELL VOLUME 91.5 fl (81.0-99.0); MEAN CORPUSCULAR HGB 28.1 pg (27.0-31.0); MEAN CORPUSCULAR HGB CONC 30.7 g/dl (33.0-37.0); MEAN PLATELET VOLUME 11.6 fl (9.6-12.3); MONO # 0.4 10*3/uL (0.1-1.0); MONO % 6.4 % (3.0-9.0); NEUT # 3.9 10*3/uL (2.3-7.9); PLATELET COUNT AUTOMATED 211 10*3/uL (130-400); RED BLOOD COUNT 4.34 10*6/uL (4.10-5.10); RED CELL DISTRI WIDTH 14.5 % (0-14.5); WHITE BLOOD COUNT 6.7 10*3/uL (4.8-10.8)
[2020-11-25 15:37] LABS: ACT PARTIAL THROMBO TIME 25.3 SECONDS (20.0-32.1)
[2020-11-25 15:42] LABS: ALBUMIN 3.6 gm/dl (3.1-4.5); ALKALINE PHOSPHATASE 175 U/L (45-117); BUN 11 mg/dl (7-24); CHLORIDE 109 mmol/L (98-107); POTASSIUM 3.7 mmol/L (3.5-5.1); SGOT/AST 29 IU/L (3-35); SGPT/ALT 19 U/L (12-78); SODIUM 142 mmol/L (136-145); TOTAL PROTEIN 7.4 gm/dL (6.4-8.2)
[2020-11-25 16:08] LABS: BILIRUBIN Negative (Negative); BLOOD Negative (Negative); CLARITY Clear (Clear); COLOR Yellow (Yellow); GLUCOSE Negative (Negative); KETONE Negative (Negative); LEUKO ESTERASE Negative (Negative); NITRITE Negative (Negative); SPECIFIC GRAVITY <= 1.005 (1.001-1.030)
[2020-11-25 16:27] LABS: BACTERIA TRACE; RBC 0-2 rbc/hpf (0-2); WBC 0-2 wbc/hpf (0-5)
[2020-11-25 21:20] VITALS: BP 139/58
[2020-11-26] VITALS: BP 119/51
[2020-11-26 08:00] VITALS: BP 104/53
[2020-11-26 12:00] VITALS: BP 112/43
[2020-11-26] MEDS ORDERED: PREDNISOLONE ACE5 M5 OS (15:01)
[2020-11-26] MEDS ORDERED: ALPHAGAN-P 0.2%5 ML OS (15:01)
[2020-11-26] MEDS ORDERED: BETIMOL5 M1 OS (15:02)
[2020-11-26 16:00] VITALS: BP 122/55
[2020-11-26 20:00] VITALS: BP 100/58
[2020-11-27] VITALS: BP 107/56
[2020-11-27 08:00] VITALS: BP 117/52
[2020-11-27] MEDS ORDERED: RIVASTIGMINE TAR3 M1 PO (10:21)
[2020-11-27] MEDS ORDERED: NAMENDA-5 PO (10:21)
[2020-11-27 12:00] VITALS: BP 136/57
== END 2020-11-27 14:39 | disposition home or self-care (01) | DRG 57 ==
LOC: ED 14:44 → EDHOLD 18:05 → 5E 20:53
PROVIDERS: Internal Medicine; ADMIT Internal Medicine; ATTEND Internal Medicine
DX: G30.1 Alzheimer's disease with late onset (principal); K21.00 Gastro-esophageal reflux disease with esophagitis, without bleeding; R62.7 Adult failure to thrive; M19.90 Unspecified osteoarthritis, unspecified site; F02.80 Dementia in other diseases classified elsewhere, unspecified severity, without behavioral disturbance, psychotic disturbance, mood disturbance, and anxiety; I10 Essential (primary) hypertension; Z96.642 Presence of left artificial hip joint; E78.5 Hyperlipidemia, unspecified; F32.9 Major depressive disorder, single episode, unspecified; Z96.652 Presence of left artificial knee joint; G83.9 Paralytic syndrome, unspecified; E78.2 Mixed hyperlipidemia; Z68.26 Body mass index [BMI] 26.0-26.9, adult; Z85.42 Personal history of malignant neoplasm of other parts of uterus; Z90.710 Acquired absence of both cervix and uterus; Z88.8 Allergy status to other drugs, medicaments and biological substances; Z88.6 Allergy status to analgesic agent; Z91.02 Food additives allergy status; Z90.49 Acquired absence of other specified parts of digestive tract; Z83.3 Family history of diabetes mellitus; Z82.49 Family history of ischemic heart disease and other diseases of the circulatory system

== ENCOUNTER → 2021-02-18 | Outpatient (CLI) | payer MEDICARE, OTHER ==
[~2021-02-18] MED LIST changes: +ALPHAGAN-P 0.2%5 ML OS; +BETIMOL5 M1 OS; +MEGACE40 MG PO; +METOCLOPRAMIDE H5 M1 PO; +NAMENDA-5 PO; +PREDNISOLONE ACE5 M5 OS; +RIVASTIGMINE TAR3 M1 PO; +VITAMIN D31250 MCG PO; +ZOCOR20 MG PO
[2021-02-18 10:46] LABS: BASO % 0.6 % (0.0-1.0); EOS # 0.2 10*3/uL (0.0-0.4); EOS % 3.1 % (1.0-4.0); HEMATOCRIT 37.5 % (37.0-47.0); LYMPH # 1.6 10*3/uL (1.3-4.4); LYMPH % 29.4 % (27.0-41.0); MEAN CELL VOLUME 89.1 fl (81.0-99.0); MEAN CORPUSCULAR HGB 28.3 pg (27.0-31.0); MEAN CORPUSCULAR HGB CONC 31.7 g/dl (33.0-37.0); MEAN PLATELET VOLUME 10.8 fl (9.6-12.3); MONO # 0.4 10*3/uL (0.1-1.0); MONO % 6.8 % (3.0-9.0); NEUT # 3.3 10*3/uL (2.3-7.9); NEUT % 59.9 % (47.0-73.0); PLATELET COUNT AUTOMATED 236 10*3/uL (130-400); RED BLOOD COUNT 4.21 10*6/uL (4.10-5.10); RED CELL DISTRI WIDTH 14.9 % (0-14.5); WHITE BLOOD COUNT 5.5 10*3/uL (4.8-10.8)
[2021-02-18 11:04] LABS: ALBUMIN 3.5 gm/dl (3.1-4.5); ALKALINE PHOSPHATASE 112 U/L (45-117); BUN 18 mg/dl (7-24); CHLORIDE 113 mmol/L (98-107); CHOLESTEROL 239 mg/dL (<200); CREATININE 0.92 mg/dL (0.55-1.02); FREE T4 1.27 ng/dl (0.76-1.46); IRON 92 ug/dL (50-170); LDL CHOLESTEROL 174 mg/dL (9-159); SGOT/AST 12 IU/L (3-35); SGPT/ALT 15 U/L (12-78); SODIUM 138 mmol/L (136-145); TRIGLYCERIDES 165 mg/dl (<150)
[2021-02-18 11:32] LABS: VITAMIN D, 25-HYDROXY 25.5 ng/mL (30-100)
[2021-02-18 11:33] LABS: FERRITIN 240.7 ng/mL (10.0-291.0)
== END | disposition home or self-care (01) ==
LOC: LAB 10:26
PROVIDERS: ATTEND Internal Medicine
DX: I10 Essential (primary) hypertension (principal); D52.9 Folate deficiency anemia, unspecified; D51.9 Vitamin B12 deficiency anemia, unspecified; R70.0 Elevated erythrocyte sedimentation rate; R79.82 Elevated C-reactive protein (CRP); R74.8 Abnormal levels of other serum enzymes; R79.89 Other specified abnormal findings of blood chemistry; R53.81 Other malaise; E55.9 Vitamin D deficiency, unspecified; E03.9 Hypothyroidism, unspecified; R62.7 Adult failure to thrive; I67.89 Other cerebrovascular disease; K59.00 Constipation, unspecified; K44.9 Diaphragmatic hernia without obstruction or gangrene; G30.1 Alzheimer's disease with late onset; R26.2 Difficulty in walking, not elsewhere classified; M15.0 Primary generalized (osteo)arthritis; Z13.0 Encounter for screening for diseases of the blood and blood-forming organs and certain disorders involving the immune mechanism; Z13.1 Encounter for screening for diabetes mellitus; Z13.21 Encounter for screening for nutritional disorder; Z13.220 Encounter for screening for lipoid disorders; Z00.01 Encounter for general adult medical examination with abnormal findings; Z13.89 Encounter for screening for other disorder; Z13.9 Encounter for screening, unspecified

== ENCOUNTER 2021-03-08 12:19 | Inpatient (IN) | payer MEDICARE, OTHER ==
[~2021-03-08] VITALS: Ht 157.4 cm; Wt 67.3 kg
[~2021-03-08 12:19] MED LIST changes: -MEGACE40 MG PO; -METOCLOPRAMIDE H5 M1 PO; -VITAMIN D31250 MCG PO; -ZOCOR20 MG PO
[2021-03-08 12:32] VITALS: BP 120/54
[2021-03-08 13:12] LABS: BASO % 0.3 % (0.0-1.0); EOS # 0.2 10*3/uL (0.0-0.4); EOS % 2.1 % (1.0-4.0); HEMATOCRIT 32.7 % (37.0-47.0); LYMPH # 2.2 10*3/uL (1.3-4.4); LYMPH % 28.1 % (27.0-41.0); MEAN CELL VOLUME 91.1 fl (81.0-99.0); MEAN CORPUSCULAR HGB CONC 31.8 g/dl (33.0-37.0); MEAN PLATELET VOLUME 11.5 fl (9.6-12.3); MONO # 0.6 10*3/uL (0.1-1.0); MONO % 6.9 % (3.0-9.0); NEUT % 62.3 % (47.0-73.0); PLATELET COUNT AUTOMATED 238 10*3/uL (130-400); RED BLOOD COUNT 3.59 10*6/uL (4.10-5.10); RED CELL DISTRI WIDTH 14.4 % (0-14.5)
[2021-03-08 13:28] LABS: ALBUMIN 3.2 gm/dl (3.1-4.5); CREATININE 1.34 mg/dL (0.55-1.02); TOTAL PROTEIN 6.6 gm/dL (6.4-8.2)
[2021-03-08 13:32] LABS: BILIRUBIN Negative (Negative); BLOOD Negative (Negative); CLARITY Clear (Clear); COLOR Yellow (Yellow); GLUCOSE Negative (Negative); KETONE Trace (Negative); LEUKO ESTERASE Trace (Negative); NITRITE Negative (Negative)
[2021-03-08 13:41] LABS: BACTERIA TRACE; RBC 0-2 rbc/hpf (0-2)
[2021-03-08 13:42] LABS: MUCOUS TRACE
[2021-03-08 15:10] VITALS: BP 116/54
[2021-03-08] MEDS ORDERED: VITAMIN D31250 MCG PO (18:08)
[2021-03-08] MEDS ORDERED: ZOCOR20 MG PO (18:09)
[2021-03-08] MEDS ORDERED: MEGACE40 MG PO (18:10)
[2021-03-08 20:07] VITALS: BP 146/64
[2021-03-08 22:42] VITALS: BP 146/64
[2021-03-09] VITALS: BP 144/55
[2021-03-09 06:31] LABS: BUN 20 mg/dl (7-24); CHLORIDE 116 mmol/L (98-107); CREATININE 0.95 mg/dL (0.55-1.02); POTASSIUM 4.4 mmol/L (3.5-5.1); SODIUM 144 mmol/L (136-145)
[2021-03-09 08:00] VITALS: BP 136/60
[2021-03-09 12:00] VITALS: BP 129/74
[2021-03-09 16:00] VITALS: BP 115/60
[2021-03-09 20:00] VITALS: BP 113/53
[2021-03-10] VITALS: BP 131/53
[2021-03-10 08:00] VITALS: BP 129/57
[2021-03-10] MEDS ORDERED: METOCLOPRAMIDE H5 M1 PO (08:24)
== END 2021-03-10 11:51 | disposition home or self-care (01) | DRG 682 ==
LOC: ED 12:19 → 4E 18:05 → EDHOLD 18:05 → 4E 19:44
PROVIDERS: Emergency Medicine; Physician Assistant; ADMIT Internal Medicine; ATTEND Internal Medicine
DX: N17.9 Acute kidney failure, unspecified (principal); G93.41 Metabolic encephalopathy; G81.94 Hemiplegia, unspecified affecting left nondominant side; Z68.27 Body mass index [BMI] 27.0-27.9, adult; R62.7 Adult failure to thrive; K21.9 Gastro-esophageal reflux disease without esophagitis; M15.9 Polyosteoarthritis, unspecified; R10.12 Left upper quadrant pain; R41.81 Age-related cognitive decline; K44.9 Diaphragmatic hernia without obstruction or gangrene; I10 Essential (primary) hypertension; Z96.652 Presence of left artificial knee joint; Z85.42 Personal history of malignant neoplasm of other parts of uterus; Z88.4 Allergy status to anesthetic agent; Z91.018 Allergy to other foods; Z91.048 Other nonmedicinal substance allergy status; Z88.5 Allergy status to narcotic agent; Z90.49 Acquired absence of other specified parts of digestive tract; Z90.710 Acquired absence of both cervix and uterus; Z83.3 Family history of diabetes mellitus; Z82.49 Family history of ischemic heart disease and other diseases of the circulatory system; Z82.3 Family history of stroke; Z91.81 History of falling

== ENCOUNTER 2021-06-08 17:07 | Emergency (ER) | payer MEDICARE, OTHER ==
[~2021-06-08 17:07] MED LIST changes: +MEGACE40 MG PO; +METOCLOPRAMIDE H5 M1 PO; +VITAMIN D31250 MCG PO; +ZOCOR20 MG PO
== END 2021-06-08 19:01 | disposition home or self-care (01) ==
LOC: ED 17:07
DX: H40.052 Ocular hypertension, left eye (principal); R41.0 Disorientation, unspecified; Z88.5 Allergy status to narcotic agent; Z91.048 Other nonmedicinal substance allergy status; Z88.4 Allergy status to anesthetic agent; Z91.018 Allergy to other foods; Z79.899 Other long term (current) drug therapy; Z98.890 Other specified postprocedural states; Z90.49 Acquired absence of other specified parts of digestive tract; Z90.711 Acquired absence of uterus with remaining cervical stump; Z96.652 Presence of left artificial knee joint; Z96.642 Presence of left artificial hip joint

== ENCOUNTER 2021-06-17 19:55 | Emergency (ER) | payer MEDICARE, OTHER ==
[~2021-06-17] VITALS: Ht 157.4 cm; Wt 72.6 kg
[2021-06-17 20:16] LABS: BASO % 0.1 % (0.0-1.0); EOS # 0.1 10*3/uL (0.0-0.4); EOS % 1.9 % (1.0-4.0); HEMATOCRIT 35.2 % (37.0-47.0); LYMPH % 30.3 % (27.0-41.0); MEAN CELL VOLUME 89.8 fl (81.0-99.0); MEAN CORPUSCULAR HGB 29.3 pg (27.0-31.0); MEAN CORPUSCULAR HGB CONC 32.7 g/dl (33.0-37.0); MEAN PLATELET VOLUME 10.8 fl (9.6-12.3); MONO # 0.6 10*3/uL (0.1-1.0); MONO % 8.5 % (3.0-9.0); NEUT % 59.1 % (47.0-73.0); PLATELET COUNT AUTOMATED 241 10*3/uL (130-400); RED BLOOD COUNT 3.92 10*6/uL (4.10-5.10); RED CELL DISTRI WIDTH 13.2 % (0-14.5); WHITE BLOOD COUNT 6.7 10*3/uL (4.8-10.8)
[2021-06-17 20:31] LABS: ALBUMIN 3.2 gm/dl (3.1-4.5); ALKALINE PHOSPHATASE 96 U/L (45-117); BUN 16 mg/dl (7-24); CHLORIDE 110 mmol/L (98-107); CREATININE 1.03 mg/dL (0.55-1.02); POTASSIUM 3.8 mmol/L (3.5-5.1); SGOT/AST 9 IU/L (3-35); SGPT/ALT 15 U/L (12-78); SODIUM 141 mmol/L (136-145); TOTAL PROTEIN 6.5 gm/dL (6.4-8.2)
[2021-06-17 21:54] LABS: BILIRUBIN Negative (Negative); BLOOD Negative (Negative); CLARITY Clear (Clear); COLOR Yellow (Yellow); GLUCOSE Negative (Negative); KETONE Negative (Negative); LEUKO ESTERASE Trace (Negative); NITRITE Negative (Negative)
[2021-06-17 22:04] LABS: WBC 16-20 wbc/hpf (0-5)
== END 2021-06-18 01:05 | disposition home or self-care (01) ==
LOC: ED 19:55
PROVIDERS: Internal Medicine
DX: F32.9 Major depressive disorder, single episode, unspecified (principal); D64.9 Anemia, unspecified; N18.31 Chronic kidney disease, stage 3a; Z88.6 Allergy status to analgesic agent; Z91.018 Allergy to other foods; Z88.4 Allergy status to anesthetic agent; Z79.899 Other long term (current) drug therapy

== ENCOUNTER 2021-06-18 01:29 | Inpatient (IN) | payer MEDICARE, OTHER ==
[~2021-06-18] VITALS: Ht 160 cm; Wt 69.4 kg
[2021-06-18 01:47] VITALS: BP 163/90
[2021-06-18 05:22] VITALS: BP 149/72
[2021-06-18 10:45] VITALS: BP 154/80
[2021-06-18 14:42] VITALS: BP 152/61
[2021-06-18 16:39] LABS: BILIRUBIN Negative (Negative); BLOOD 1+ (Negative); CLARITY Turbid (Clear); COLOR Yellow (Yellow); GLUCOSE Negative (Negative); KETONE Negative (Negative); LEUKO ESTERASE 1+ (Negative); NITRITE Negative (Negative); PH 7.5 (4.5-8.0)
[2021-06-18 16:49] LABS: BACTERIA 4+; EPITHELIAL CELLS 0-2; WBC 21-30 wbc/hpf (0-5)
[2021-06-18 19:25] VITALS: BP 154/66
[2021-06-18 22:53] VITALS: BP 138/92
[2021-06-19] VITALS (7 sets, daily range): BP systolic 111–154; BP diastolic 79–104
[2021-06-20 02:53] VITALS: BP 145/76
[2021-06-20 05:57] LABS: BASO % 0.4 % (0.0-1.0); EOS # 0.1 10*3/uL (0.0-0.4); EOS % 0.9 % (1.0-4.0); HEMATOCRIT 45.1 % (37.0-47.0); LYMPH # 1.7 10*3/uL (1.3-4.4); MEAN CELL VOLUME 89.5 fl (81.0-99.0); MEAN CORPUSCULAR HGB 29.6 pg (27.0-31.0); MEAN PLATELET VOLUME 11.7 fl (9.6-12.3); MONO # 0.7 10*3/uL (0.1-1.0); MONO % 6.9 % (3.0-9.0); NEUT % 73.5 % (47.0-73.0); PLATELET COUNT AUTOMATED 279 10*3/uL (130-400); RED BLOOD COUNT 5.04 10*6/uL (4.10-5.10); RED CELL DISTRI WIDTH 12.8 % (0-14.5); WHITE BLOOD COUNT 9.5 10*3/uL (4.8-10.8)
[2021-06-20 06:10] LABS: CHLORIDE 103 mmol/L (98-107); POTASSIUM 3.8 mmol/L (3.5-5.1); SODIUM 133 mmol/L (136-145)
[2021-06-20 06:16] LABS: BUN 16 mg/dl (7-24); CREATININE 0.81 mg/dL (0.55-1.02)
[2021-06-20 06:22] VITALS: BP 132/90
[2021-06-20 08:50] VITALS: BP 88/54
[2021-06-20 17:30] VITALS: BP 149/88
[2021-06-20 19:53] VITALS: BP 143/80
[2021-06-20 23:40] VITALS: BP 132/86
[2021-06-21 03:18] VITALS: BP 127/71
[2021-06-21 08:54] VITALS: BP 114/78
[2021-06-21 12:05] VITALS: BP 128/52
[2021-06-21 20:00] VITALS: BP 119/76
[2021-06-22] VITALS: BP 110/60
[2021-06-22 06:57] LABS: BASO % 0.2 % (0.0-1.0); EOS # 0.1 10*3/uL (0.0-0.4); EOS % 1.1 % (1.0-4.0); HEMATOCRIT 41.9 % (37.0-47.0); LYMPH # 2.4 10*3/uL (1.3-4.4); LYMPH % 23.7 % (27.0-41.0); MEAN CORPUSCULAR HGB 29.1 pg (27.0-31.0); MEAN CORPUSCULAR HGB CONC 32.7 g/dl (33.0-37.0); MEAN PLATELET VOLUME 11.3 fl (9.6-12.3); MONO # 1.3 10*3/uL (0.1-1.0); MONO % 12.6 % (3.0-9.0); NEUT # 6.3 10*3/uL (2.3-7.9); NEUT % 62.2 % (47.0-73.0); PLATELET COUNT AUTOMATED 249 10*3/uL (130-400); RED BLOOD COUNT 4.71 10*6/uL (4.10-5.10); WHITE BLOOD COUNT 10.1 10*3/uL (4.8-10.8)
[2021-06-22 07:08] LABS: BUN 32 mg/dl (7-24); CHLORIDE 110 mmol/L (98-107); CREATININE 1.02 mg/dL (0.55-1.02); POTASSIUM 4.2 mmol/L (3.5-5.1); SODIUM 136 mmol/L (136-145)
[2021-06-22 08:00] VITALS: BP 112/60
[2021-06-22 12:00] VITALS: BP 110/58
[2021-06-22 16:00] VITALS: BP 123/71
[2021-06-22 20:00] VITALS: BP 112/60
[2021-06-23] VITALS: BP 138/64
[2021-06-23 08:00] VITALS: BP 137/80
== END 2021-06-23 10:26 | DRG 682 ==
LOC: ED 01:29 → 4E 09:46 → EDHOLD 09:46 → 4E 06-21 13:54
PROVIDERS: Emergency Medicine; ADMIT Internal Medicine; ATTEND Internal Medicine
DX: N17.9 Acute kidney failure, unspecified (principal); G93.41 Metabolic encephalopathy; N39.0 Urinary tract infection, site not specified; B96.20 Unspecified Escherichia coli [E. coli] as the cause of diseases classified elsewhere; K43.9 Ventral hernia without obstruction or gangrene; Z20.822 Contact with and (suspected) exposure to COVID-19; G30.1 Alzheimer's disease with late onset; F02.80 Dementia in other diseases classified elsewhere, unspecified severity, without behavioral disturbance, psychotic disturbance, mood disturbance, and anxiety; F25.9 Schizoaffective disorder, unspecified; B96.1 Klebsiella pneumoniae [K. pneumoniae] as the cause of diseases classified elsewhere; M19.90 Unspecified osteoarthritis, unspecified site; G93.9 Disorder of brain, unspecified; Z96.652 Presence of left artificial knee joint; F41.9 Anxiety disorder, unspecified; K21.9 Gastro-esophageal reflux disease without esophagitis; I10 Essential (primary) hypertension; R62.7 Adult failure to thrive; Z88.5 Allergy status to narcotic agent; Z88.8 Allergy status to other drugs, medicaments and biological substances; Z90.49 Acquired absence of other specified parts of digestive tract; Z90.710 Acquired absence of both cervix and uterus; Z83.3 Family history of diabetes mellitus; Z82.49 Family history of ischemic heart disease and other diseases of the circulatory system; Z82.3 Family history of stroke; Z68.27 Body mass index [BMI] 27.0-27.9, adult

== ENCOUNTER 2022-08-13 15:02 | Emergency (ER) | payer MEDICARE, OTHER ==
[~2022-08-13] VITALS: Wt 54.9 kg
[2022-08-13 15:37] LABS: BASO % 0.2 % (0.0-1.0); EOS # 0.1 10*3/uL (0.0-0.4); EOS % 0.7 % (1.0-4.0); HEMATOCRIT 42.3 % (37.0-47.0); LYMPH # 2.4 10*3/uL (1.3-4.4); LYMPH % 24.7 % (27.0-41.0); MEAN CELL VOLUME 89.2 fl (81.0-99.0); MEAN CORPUSCULAR HGB 28.7 pg (27.0-31.0); MEAN CORPUSCULAR HGB CONC 32.2 g/dl (33.0-37.0); MEAN PLATELET VOLUME 10.5 fl (9.6-12.3); MONO # 0.8 10*3/uL (0.1-1.0); MONO % 8.5 % (3.0-9.0); NEUT # 6.3 10*3/uL (2.3-7.9); NEUT % 65.7 % (47.0-73.0); PLATELET COUNT AUTOMATED 248 10*3/uL (130-400); RED BLOOD COUNT 4.74 10*6/uL (4.10-5.10); RED CELL DISTRI WIDTH 14.4 % (0-14.5); WHITE BLOOD COUNT 9.6 10*3/uL (4.8-10.8)
[2022-08-13 15:55] LABS: ALKALINE PHOSPHATASE 88 U/L (46-116); BUN 21 mg/dl (9-23); CHLORIDE 105 mmol/L (98-107); POTASSIUM 4.3 mmol/L (3.4-5.1); SGPT/ALT 16 U/L (10-49); TOTAL PROTEIN 6.4 gm/dL (6.0-8.0)
[2022-08-13 16:40] LABS: BILIRUBIN Negative (Negative); BLOOD 3+ (Negative); CLARITY Turbid (Clear); COLOR Yellow (Yellow); GLUCOSE Negative (Negative); KETONE Negative (Negative); LEUKO ESTERASE 3+ (Negative); NITRITE Negative (Negative); SPECIFIC GRAVITY 1.025 (1.001-1.030)
[2022-08-13 17:14] LABS: BACTERIA 2+; RBC 21-30 rbc/hpf (0-2); WBC 21-30 wbc/hpf (0-5)
[2022-08-13] MEDS ORDERED: MACROBID100 M1 PO (17:22)
== END 2022-08-13 17:31 | disposition home or self-care (01) ==
LOC: ED 15:02
PROVIDERS: Nurse Practitioner Family
DX: N39.0 Urinary tract infection, site not specified (principal); Z88.5 Allergy status to narcotic agent; Z91.018 Allergy to other foods; Z88.8 Allergy status to other drugs, medicaments and biological substances; Z90.49 Acquired absence of other specified parts of digestive tract; Z90.89 Acquired absence of other organs; Z98.890 Other specified postprocedural states; Z90.710 Acquired absence of both cervix and uterus; M79.631 Pain in right forearm; W06.XXXA Fall from bed, initial encounter; Y93.89 Activity, other specified; Y92.89 Other specified places as the place of occurrence of the external cause; Y99.8 Other external cause status

== ENCOUNTER 2024-04-17 07:22 | Inpatient (IN) | payer MEDICARE, OTHER ==
[~2024-04-17] VITALS: Ht 157.4 cm; Wt 75.0 kg
[~2024-04-17 07:22] MED LIST changes: +MACROBID100 M1 PO
[2024-04-17 07:42] VITALS: BP 148/73
[2024-04-17 08:07] LABS: BASO % 0.3 % (0.0-1.0); HEMATOCRIT 37.6 % (37.0-47.0); LYMPH # 1.5 10*3/uL (1.3-4.4); MEAN CELL VOLUME 91.9 fl (81.0-99.0); MEAN CORPUSCULAR HGB 29.3 pg (27.0-31.0); MEAN CORPUSCULAR HGB CONC 31.9 g/dl (33.0-37.0); MEAN PLATELET VOLUME 10.6 fl (9.6-12.3); MONO # 0.7 10*3/uL (0.1-1.0); MONO % 9.1 % (3.0-9.0); NEUT # 5.6 10*3/uL (2.3-7.9); NEUT % 71.3 % (47.0-73.0); PLATELET COUNT AUTOMATED 241 10*3/uL (130-400); RED BLOOD COUNT 4.09 10*6/uL (4.10-5.10); RED CELL DISTRI WIDTH 14.3 % (0-14.5); WHITE BLOOD COUNT 7.9 10*3/uL (4.8-10.8)
[2024-04-17 08:26] LABS: BUN 11 mg/dl (9-23); CHLORIDE 108 mmol/L (98-107); POTASSIUM 4.1 mmol/L (3.4-5.1)
[2024-04-17] MEDS ORDERED: AZITHROMYCIN 250 ML IV ONE (09:40)
[2024-04-17] MEDS ORDERED: DEXAMETHASONE SODIUM PHOSPHA IV ONE (09:40)
[2024-04-17] MEDS ORDERED: Ceftriaxone Sodium 1 GM/10 ML SYR IV ONE (09:40)
[2024-04-17] MEDS ORDERED: Dexamethasone Sodium Phospha 4 MG/ML VIAL IV ONE (09:50)
[2024-04-17] MEDS ORDERED: NATURE'S BLEND F1 MG PO (10:39)
[2024-04-17] MEDS ORDERED: Ipratropium Brom3 ML INH (10:40)
[2024-04-17] MEDS ORDERED: MEDROL4 M1 PO ×3 (10:40→10:42)
[2024-04-17] MEDS ORDERED: PERIDEX118 ML MM (10:43)
[2024-04-17] MEDS ORDERED: RIVASTIGMINE TAR6 M1 PO (10:45)
[2024-04-17] MEDS ORDERED: XARELTO2.5 MG PO (10:46)
[2024-04-17] MEDS ORDERED: VOLTAREN ARTHRI20 GM T (10:47)
[2024-04-17 12:31] VITALS: BP 117/69
[2024-04-17] MEDS ORDERED: ACETAMINOPHEN 325 MG TAB PO PRN (12:50)
[2024-04-17] MEDS ORDERED: REMDESIVIR 200 MG in SODIUM CHLORIDE 0.9% 210 ML IV ONE (13:40)
[2024-04-17] MEDS ORDERED: Piperacillin Sodium/Tazobact 50 ML IV SCH (14:00)
[2024-04-17] MEDS ORDERED: FOAM BANDAGE 5X5 T ONE (15:58)
[2024-04-17] MEDS ORDERED: FOAM BANDAGE HEEL T ONE (15:58)
[2024-04-17] MEDS ORDERED: FOAM BANDAGE 1 EACH BANDAGE T ONE (15:58)
[2024-04-17] MEDS ORDERED: HEEL PROTECTOR DEVICE ONE (15:58)
[2024-04-17] MEDS ORDERED: Protector, Heel/Elbow (PAIR) DEVICE ONE (15:58)
[2024-04-17 16:00] VITALS: BP 124/53
[2024-04-17] MEDS ORDERED: GUAIFENESIN 600 MG TAB ER PO SCH (22:00)
[2024-04-18] VITALS: BP 110/50
[2024-04-18 08:00] VITALS: BP 93/54
[2024-04-18] MEDS ORDERED: Rivastigmine Tartrate 3 MG CAP PO SCH (10:00)
[2024-04-18] MEDS ORDERED: BRIMONIDINE 0.2% 15 ML BOTTLE OPH SCH (10:00)
[2024-04-18] MEDS ORDERED: RIVAROXABAN 2.5 MG TABLET PO SCH (10:00)
[2024-04-18] MEDS ORDERED: Pantoprazole Sodium 40 MG TAB PO SCH (10:00)
[2024-04-18] MEDS ORDERED: TIMOLOL 0.5% OPHTHALMIC 5 ML BOTTLE OPH SCH (10:00)
[2024-04-18] MEDS ORDERED: prednisoLONE acetate 1% OPHTHALMIC 5 ML BOT OPH SCH (12:00)
[2024-04-18 14:00] VITALS: BP 114/73
[2024-04-18] MEDS ORDERED: REMDESIVIR 100 MG in SODIUM CHLORIDE 0.9% 230 ML IV SCH (14:00)
[2024-04-18] MEDS ORDERED: Dexamethasone Sodium Phospha 4 MG/ML VIAL IV SCH (14:15)
[2024-04-18 16:00] VITALS: BP 125/96
[2024-04-18 20:00] VITALS: BP 148/77
[2024-04-18] MEDS ORDERED: SIMVASTATIN 20 MG TAB PO SCH (22:00)
[2024-04-19] VITALS: BP 115/74
[2024-04-19 06:39] LABS: BASO % 0.1 % (0.0-1.0); HEMATOCRIT 38.5 % (37.0-47.0); LYMPH # 1.4 10*3/uL (1.3-4.4); LYMPH % 19.2 % (27.0-41.0); MEAN CORPUSCULAR HGB 28.4 pg (27.0-31.0); MEAN CORPUSCULAR HGB CONC 31.2 g/dl (33.0-37.0); MEAN PLATELET VOLUME 11.9 fl (9.6-12.3); MONO # 0.5 10*3/uL (0.1-1.0); MONO % 6.4 % (3.0-9.0); NEUT # 5.3 10*3/uL (2.3-7.9); NEUT % 73.9 % (47.0-73.0); PLATELET COUNT AUTOMATED 274 10*3/uL (130-400); RED BLOOD COUNT 4.23 10*6/uL (4.10-5.10); RED CELL DISTRI WIDTH 13.8 % (0-14.5); WHITE BLOOD COUNT 7.2 10*3/uL (4.8-10.8)
[2024-04-19 06:55] LABS: ALKALINE PHOSPHATASE 120 U/L (46-116); BUN 13 mg/dl (9-23); CHLORIDE 105 mmol/L (98-107); LDH 219 U/L (120-246); SGPT/ALT 12 U/L (5-49); TOTAL PROTEIN 6.5 gm/dL (6.0-8.0)
[2024-04-19 08:00] VITALS: BP 144/81
[2024-04-19] MEDS ORDERED: ZINC OXIDE 1 OZ TUBE T SCH (10:00)
[2024-04-19 12:00] VITALS: BP 145/94
[2024-04-19 16:00] VITALS: BP 142/82
[2024-04-20] VITALS: BP 124/77
[2024-04-20 06:45] LABS: BASO % 0.1 % (0.0-1.0); HEMATOCRIT 35.9 % (37.0-47.0); LYMPH # 1.8 10*3/uL (1.3-4.4); LYMPH % 23.6 % (27.0-41.0); MEAN CORPUSCULAR HGB 28.7 pg (27.0-31.0); MEAN CORPUSCULAR HGB CONC 32.6 g/dl (33.0-37.0); MEAN PLATELET VOLUME 11.4 fl (9.6-12.3); MONO # 0.9 10*3/uL (0.1-1.0); MONO % 11.5 % (3.0-9.0); NEUT # 4.9 10*3/uL (2.3-7.9); NEUT % 64.5 % (47.0-73.0); PLATELET COUNT AUTOMATED 282 10*3/uL (130-400); RED BLOOD COUNT 4.08 10*6/uL (4.10-5.10); RED CELL DISTRI WIDTH 13.8 % (0-14.5); WHITE BLOOD COUNT 7.6 10*3/uL (4.8-10.8)
[2024-04-20 07:14] LABS: ALKALINE PHOSPHATASE 106 U/L (46-116); BUN 14 mg/dl (9-23); CHLORIDE 105 mmol/L (98-107); LDH 184 U/L (120-246); POTASSIUM 3.4 mmol/L (3.4-5.1); SGPT/ALT 13 U/L (5-49); TOTAL PROTEIN 5.7 gm/dL (6.0-8.0)
[2024-04-20 08:00] VITALS: BP 119/62
[2024-04-20 12:00] VITALS: BP 113/82
[2024-04-20 15:43] VITALS: BP 112/80
[2024-04-21] VITALS: BP 101/88
[2024-04-21 06:22] LABS: BASO % 0.1 % (0.0-1.0); EOS % 0.2 % (1.0-4.0); HEMATOCRIT 41.7 % (37.0-47.0); LYMPH # 2.6 10*3/uL (1.3-4.4); LYMPH % 30.8 % (27.0-41.0); MEAN CELL VOLUME 89.3 fl (81.0-99.0); MEAN CORPUSCULAR HGB 29.1 pg (27.0-31.0); MEAN CORPUSCULAR HGB CONC 32.6 g/dl (33.0-37.0); MEAN PLATELET VOLUME 11.9 fl (9.6-12.3); MONO # 0.9 10*3/uL (0.1-1.0); MONO % 10.5 % (3.0-9.0); NEUT % 58.1 % (47.0-73.0); PLATELET COUNT AUTOMATED 271 10*3/uL (130-400); RED BLOOD COUNT 4.67 10*6/uL (4.10-5.10); RED CELL DISTRI WIDTH 13.8 % (0-14.5); WHITE BLOOD COUNT 8.6 10*3/uL (4.8-10.8)
[2024-04-21 06:51] LABS: ALKALINE PHOSPHATASE 129 U/L (46-116); CHLORIDE 106 mmol/L (98-107); LDH 294 U/L (120-246); POTASSIUM 4.1 mmol/L (3.4-5.1); SGPT/ALT 19 U/L (5-49); TOTAL PROTEIN 6.4 gm/dL (6.0-8.0)
[2024-04-21 07:01] LABS: BUN 26 mg/dl (9-23)
[2024-04-21 08:00] VITALS: BP 131/90
== END 2024-04-21 16:17 | DRG 177 ==
LOC: ED 07:22 → EDHOLD 10:37 → 4E 10:37 → EDHOLD 10:37 → 4E 14:44
PROVIDERS: Internal Medicine; Internal Medicine Critical Care Medicine; ADMIT Internal Medicine; ATTEND Internal Medicine
PROC: XW033E5 Introduction of Remdesivir Anti-infective into Peripheral Vein, Percutaneous Approach, New Technology Group 5 (ICD-10-PCS; principal; 2024-04-18)
DX: U07.1 COVID-19 (principal); J12.82 Pneumonia due to coronavirus disease 2019; J96.01 Acute respiratory failure with hypoxia; J98.11 Atelectasis; I69.354 Hemiplegia and hemiparesis following cerebral infarction affecting left non-dominant side; F02.80 Dementia in other diseases classified elsewhere, unspecified severity, without behavioral disturbance, psychotic disturbance, mood disturbance, and anxiety; K21.9 Gastro-esophageal reflux disease without esophagitis; E11.51 Type 2 diabetes mellitus with diabetic peripheral angiopathy without gangrene; G30.1 Alzheimer's disease with late onset; E11.22 Type 2 diabetes mellitus with diabetic chronic kidney disease; E78.5 Hyperlipidemia, unspecified; I12.9 Hypertensive chronic kidney disease with stage 1 through stage 4 chronic kidney disease, or unspecified chronic kidney disease; R62.7 Adult failure to thrive; Z96.652 Presence of left artificial knee joint; N18.9 Chronic kidney disease, unspecified; H54.62 Unqualified visual loss, left eye, normal vision right eye; L89.526 Pressure-induced deep tissue damage of left ankle; S70.311A Abrasion, right thigh, initial encounter; G93.89 Other specified disorders of brain; L89.626 Pressure-induced deep tissue damage of left heel; L89.616 Pressure-induced deep tissue damage of right heel; S91.101A Unspecified open wound of right great toe without damage to nail, initial encounter; Z66 Do not resuscitate; X58.XXXA Exposure to other specified factors, initial encounter; Z83.3 Family history of diabetes mellitus; Z88.8 Allergy status to other drugs, medicaments and biological substances; Z91.018 Allergy to other foods; Z90.49 Acquired absence of other specified parts of digestive tract; Z90.710 Acquired absence of both cervix and uterus; Z82.49 Family history of ischemic heart disease and other diseases of the circulatory system; Z82.3 Family history of stroke; Z68.30 Body mass index [BMI] 30.0-30.9, adult; Z85.42 Personal history of malignant neoplasm of other parts of uterus; Z86.711 Personal history of pulmonary embolism; Z51.5 Encounter for palliative care; Z88.6 Allergy status to analgesic agent; Y93.89 Activity, other specified; Y92.89 Other specified places as the place of occurrence of the external cause; Y99.8 Other external cause status